=== PATIENT | male | born 1960 | race Caucasian/White ===

== ENCOUNTER 2016-11-27 08:35 | Observation (INO) ==
[2016-11-27] MEDS ORDERED: methylPREDNISolone 125 MG/2 ML VIAL IVP ONE (08:41)
[2016-11-27] MEDS ORDERED: Ipratropium/Albuterol Neb 3 ML IH ONE ×2 (08:41→09:00)
[2016-11-27] MEDS ORDERED: Azithromycin 250 MG TABLET PO ONE (08:41)
[2016-11-27] MEDS ORDERED: 0.9 % Sodium Chloride 1,000 ML IVC SCH ×2 (08:45→10:15)
--- NOTE | 2016-11-27 08:45 | Emergency Department Note ---
Disposition Clinical Impression: Acute exacerbation of chronic obstructive airways disease Hypertension Qualifiers: Hypertension type: essential hypertension Qualified Code(s): I10 - Essential ( primary) hypertension Disposition: Admitted As Inpatient Condition: Fair Referrals: NONE,PCP [Primary Care Provider] - Forms: ED Satisfaction Letter SOB HPI - General Chief Complaint: ED Shortness of Breath/Dyspnea Stated Complaint: SOB/ productive cough for 3 days Time Seen by Provider: 11/27/16 08:35 Source: patient, family Mode of arrival: private vehicle Limitations: no limitations Nursing Notes Reviewed: Yes Vital Signs Reviewed: Yes - History of Present Illness Patient relates he has had increased shortness of breath since yesterday. He has had a hard time sleeping with dyspnea has had a persistent cough productive of some thick yellow phlegm. He states that he often gets a "summer cold" and has this with his underlying COPD. He states he requires 4 L of oxygen by nasal cannula at all times and, even with this, he is having significant dyspnea with any exertion or walking. He has had some chills but denies any fever. He states his chest is very tight with his breathing but he denies any other chest pain or pressure nor any jaw, arm or back pain. He denies abdominal pain, nausea, vomiting or diarrhea. He denies any new lower extremity swelling or pain. He relates he was exposed to her granddaughter who "got a cold". Patient has been doing his routine home treatments without relief. He states he does see a biscuit factory worker at [facility] for his ongoing respiratory problems. Pt Subjective Complaint: shortness of breath Onset (ago): day(s) (1) Context: recent illness Severity: moderate, severe Consistency/Duration: gradually worsening Improves with: oxygen, rest, bronchodilators Worsens with: exertion, movement, coughing Known history of: COPD Associated symptoms: Reports: cough, wheezing, sputum production. Denies: chest pain, pain with inspiration, fever, orthopnea, lower extremity pain, polyuria, polydipsia, parasthesias, palpitations, hemoptysis, diaphoresis, nausea/vomiting, syncope, abdominal pain, rash Cough present: Yes Cough Description: Voluntary, Productive, Bronchospastic, Rattling Cough Frequency: Intermittent Sputum production: Yes Sputum Amount: Moderate Sputum Color: Yellow - Related Data Home oxygen amount: 4 liters Home Medications Medication Instructions Recorded Confirmed Albuterol Sulfate [Albuterol 2 puff IH Q4HR PRN 04/05/15 08/26/16 Inhaler] Amlodipine [Norvasc] 10 mg PO DAILY 04/05/15 08/26/16 Budesonide/Formoterol 160/4.5 2 puff IH BIDR 04/05/15 08/26/16 [Symbicort 160/4.5] Cyclobenzaprine [Flexeril] 10 mg PO TID PRN 04/05/15 08/26/16 Esomeprazole Magnesium [Nexium] 20 mg PO DAILY 04/05/15 08/26/16 Ferrous Sulfate 325 mg PO DAILY 04/05/15 08/26/16 Ipratropium/Albuterol Sulfate 2 puff IH BID 04/05/15 08/26/16 [Combivent Respimat Inhal [place]] Lisinopril [Zestril] 40 mg PO DAILY 04/05/15 08/26/16 Tiotropium [Spiriva] 1 cap IH DAILY 04/05/15 08/26/16 Previous Rx's Medication Instructions Recorded Aspirin 81 mg PO DAILY #30 tab.chew 01/31/16 Atorvastatin [Lipitor] 40 mg PO HS #30 tablet 01/31/16 Folic Acid 1 mg PO DAILY #30 tablet 01/31/16 Furosemide [Lasix] 40 mg PO BID #60 tab 01/31/16 Metoprolol XL (24 HR) Succ [Toprol 100 mg PO DAILY #30 tab.er.24h 01/31/16 Xl] Thiamine (B-1) [Vitamin B-1] 100 mg PO DAILY #30 tablet 01/31/16 HYDROcodone/Acet 5/325 mg [[place] 1 - 2 tab PO Q6H PRN #20 tab 08/26/16 5-325 mg] Rivaroxaban [Xarelto] 10 mg PO DAILY #21 tablet 08/29/16 Allergies Allergy/AdvReac Type Severity Reaction Status Date / Time No Known Allergies Allergy Verified 08/26/16 15:49 All systems ED: reviewed and negative except as stated. Past Medical History - Past Medical History Attestation: Yes The following information was validated with the patient. Source: patient, old records reviewed, nursing notes reviewed Medical history: Reports: CHF, COPD, GERD, hyperlipidemia, hypertension, other ( Obesity, hypoventilation syndrome) Surgical history: Reports: arthroscopy, orthopedic, other (ORIF right ankle, left shoulder replacement), other (Hemorrhoidectomy, cardiac catheterization December 2015) Psychiatric history: Reports: no psych history - Social History Smoking Status: Former smoker Smokeless Tobacco Status: No Alcohol use: Reports: none, heavy Drug use: Reports: none Physical Exam - General Limitations: no limitations General appearance: alert, in distress - Head Head exam: atraumatic, normocephalic, normal inspection - Eye Eye exam: Present: normal appearance, PERRL, EOMI - ENT ENT exam: normal exam, normal oropharynx, mucous membranes moist - Neck Neck exam: Present: normal inspection, full ROM, trachea midline - Chest Chest inspection: Present: normal inspection, symmetric chest wall rise - Respiratory Respiratory exam: Present: respiratory distress, wheezes, prolonged expiratory phase - Cardiovascular Cardiovascular exam: Present: regular rate, normal rhythm, normal heart sounds. Absent: tachycardia, systolic murmur, JVD - Abdominal Exam Abdominal exam: Present: soft, Non-Tender, normal bowel sounds. Absent: tenderness, distention, guarding, rebound, rigidity - Extremities Exam Extremities exam: Present: normal inspection, full ROM, normal capillary refill. Absent: tenderness, pedal edema, calf tenderness - Expanded Lower Extremity Exam Neurovascular/Tendon exam: Present: normal capillary refill. Absent: motor deficit, sensory deficit, tendon deficit Gait: other (Patient is able to stand to transfer from car to wheelchair and from the wheelchair to the bed but his other activities limited by his dyspnea.) - Back Exam Back exam: Present: normal inspection, full ROM. Absent: tenderness, vertebral tenderness - Neurological Exam Neurological exam: Present: alert, oriented X3 - Psychiatric Psychiatric exam: Present: normal affect, normal mood - Skin Skin exam: Present: warm, dry, intact, normal color. Absent: cyanosis, diaphoresis, pallor Course Course Narrative: 0845: The patient was brought in from his car on supplemental oxygen. Upon arriving to the examination bed, he was saturating in the 70s with the oxygen at 4-5 L nasal cannula. With rest in the bed his saturations have come up to the mid 90s. He initially did have to speak truncated sentences, but, with rest , has been able to speak much more normally. Patient was advised that he would likely need initial evaluation in the emergency department for his COPD exacerbation but would also likely need a period of observation the hospital. He indicated he understood that likelihood before he even came in. The patient has been written for aerosols, antibiotic treatment, IV steroid as well as some IV fluids. 0930: All testing has been discussed with the patient. He states he is feeling severely better but continues with an audible wheeze and prolonged expiratory phase with wheezing on auscultation. I believe he will benefit from continued IV steroid, antibiotics and inpatient aerosol treatments. Dr. Correia is being contacted to help coordinate further inpatient treatment. Vital Signs Temperature 99.1 F 11/27/16 08:37 Pulse Rate 92 11/27/16 08:37 Respiratory Rate 15 11/27/16 08:37 Blood Pressure 146/88 11/27/16 08:37 O2 Sat by Pulse Oximetry 87 11/27/16 08:37 Temperature 99.1 F 11/27/16 08:51 Pulse Rate 91 11/27/16 09:05 Respiratory Rate 20 11/27/16 09:05 Blood Pressure 141/80 11/27/16 09:05 O2 Sat by Pulse Oximetry 96 11/27/16 09:05 Oxygen Delivery Oxygen Delivery Nasal Cannula Shortness of Breath/Dyspnea - Differential Diagnosis Likely: acute exacerbation of chronic obstructive airways disease, congestive heart failure, pneumonia, asthma with exacerbation - Medical Records Medical records reviewed: Yes I reviewed the patient's medical records. - Lab Data Lab results reviewed: Yes I reviewed the patient's lab results. Result diagrams: 11/27/16 08:50 11/27/16 08:50 Lab Results 11/27/16 11/27/16 11/27/16 Range/Units 08:50 08:50 08:50 WBC 5.8 (4.3-11.1) K/mcL RBC 4.40 (4.19-5.50) M/mcL Hgb 14.0 (12.9-16.9) g/dL Hct 42.1 (37.5-50.1) % MCV 95.7 (83.0-100.0) fL MCH 31.8 (28.0-33.3) pg MCHC 33.3 (31.6-35.5) g/dL RDW 12.4 (11.5-14.5) % Plt Count 184 (140-400) K/mcL MPV 9.9 (9.4-12.4) fL Immature Gran % 0.3 (0-4) % Seg Neutrophils % 74.5 % Lymphocytes % 13.3 % Monocytes % 10.2 % Eosinophils % 1.2 % Basophils % 0.5 % Neutrophils # 4.3 (1.6-8.9) K/mcL Lymphocytes # 0.8 (0.6-4.6) K/mcL Monocytes # 0.6 (0.0-1.3) K/mcL Eosinophils # 0.1 (0.0-0.6) K/mcL Basophils # 0.0 (0.0-0.2) K/mcL Sodium 140 (136-145) mEq/L Potassium 4.8 H (3.5-4.5) mEq/L Chloride 99 (98-109) mEq/L Carbon Dioxide 30 H (19-29) mEq/L BUN 16 (8-26) mg/dL Creatinine 0.96 (0.72-1.25) mg/dL Est GFR ( Amer) > 60 (> 60) Est GFR (Non-Af Amer) > 60 (> 60) BUN/Creatinine Ratio 17 (6-26) Glucose 101 H (70-99) mg/dL Calculated Osmolality 291 (280-300) Calcium 9.7 (8.6-10.8) mg/dL Troponin I 0.00 (0-0.03) ng/mL B-Natriuretic Peptide (0-100) pg/mL 11/27/16 Range/Units 08:50 WBC (4.3-11.1) K/mcL RBC (4.19-5.50) M/mcL Hgb (12.9-16.9) g/dL Hct (37.5-50.1) % MCV (83.0-100.0) fL MCH (28.0-33.3) pg MCHC (31.6-35.5) g/dL RDW (11.5-14.5) % Plt Count (140-400) K/mcL MPV (9.4-12.4) fL Immature Gran % (0-4) % Seg Neutrophils % % Lymphocytes % % Monocytes % % Eosinophils % % Basophils % % Neutrophils # (1.6-8.9) K/mcL Lymphocytes # (0.6-4.6) K/mcL Monocytes # (0.0-1.3) K/mcL Eosinophils # (0.0-0.6) K/mcL Basophils # (0.0-0.2) K/mcL Sodium (136-145) mEq/L Potassium (3.5-4.5) mEq/L Chloride (98-109) mEq/L Carbon Dioxide (19-29) mEq/L BUN (8-26) mg/dL Creatinine (0.72-1.25) mg/dL Est GFR ( Amer) (> 60) Est GFR (Non-Af Amer) (> 60) BUN/Creatinine Ratio (6-26) Glucose (70-99) mg/dL Calculated Osmolality (280-300) Calcium (8.6-10.8) mg/dL Troponin I (0-0.03) ng/mL B-Natriuretic Peptide 26 (0-100) pg/mL - Radiology Data Radiology results reviewed: Yes I reviewed the patient's radiology results. Single view chest x-ray is performed. This does not demonstrate evidence for infiltrate, effusion, pneumothorax, foreign body or heart failure. The cardiac silhouette is normal. I do not see abnormality to the osseous structures of the chest. This is on my interpretation. Impressions Chest X-Ray 11/27/16 08:41 IMPRESSION: 1. Perhaps minimal prominence of the pulmonary vasculature. 2. Otherwise, no evidence of acute cardiopulmonary abnormality. D/ / Titus Montana MD / Titus Montana MD Interpreting Provider: Titus Montana MD - EKG Data EKG attestation: Yes I reviewed and interpreted this EKG. EKG shows normal: Reports: sinus rhythm, axis, intervals, QRS complexes, ST-T waves Rate: Reports: normal (92) Interpretation: Reports: no acute changes, normal EKG
[2016-11-27 08:59] LABS: Basophils % 0.5 %; Eosinophils # 0.1 K/mcL (0.0-0.6); Eosinophils % 1.2 %; Hematocrit 42.1 % (37.5-50.1); Immature Granulocytes % 0.3 % (0-4); Lymphocytes # 0.8 K/mcL (0.6-4.6); Lymphocytes % 13.3 %; Mean Corpuscular HGB Conc 33.3 g/dL (31.6-35.5); Mean Corpuscular Hemoglobin 31.8 pg (28.0-33.3); Mean Corpuscular Volume 95.7 fL (83.0-100.0); Mean Platelet Volume 9.9 fL (9.4-12.4); Monocytes # 0.6 K/mcL (0.0-1.3); Monocytes % 10.2 %; Neutrophils # 4.3 K/mcL (1.6-8.9); Platelet Count 184 K/mcL (140-400); Red Cell Distribution Width 12.4 % (11.5-14.5); Segmented Neutrophils % 74.5 %
[2016-11-27 09:12] LABS: BUN/Creatinine Ratio 17 (6-26); Blood Urea Nitrogen 16 mg/dL (8-26); Calcium 9.7 mg/dL (8.6-10.8); Carbon Dioxide 30 mEq/L (19-29); Chloride 99 mEq/L (98-109); Glucose 101 mg/dL (70-99); Osmolality,Calculated 291 (280-300); Potassium 4.8 mEq/L (3.5-4.5); Sodium 140 mEq/L (136-145); eGFR For African Americans > 60 (> 60); eGFR For Non-African Americans > 60 (> 60)
[2016-11-27] MEDS: Ipratropium/Albuterol Neb 3 ML ONE ×2 (09:36→09:44)
[2016-11-27] MEDS ORDERED: Naloxone 0.4 MG/ML INJ IVP PRN (10:15)
[2016-11-27] MEDS ORDERED: Ondansetron 4 MG/2 ML VIAL IVP PRN (10:15)
[2016-11-27] MEDS ORDERED: MOM Conc 10 ML UD.LIQ PO PRN (10:15)
[2016-11-27] MEDS: Albuterol 2.5 MG/3 ML NEBULIZER IH PRN ×4 (12:57→23:15)
--- NOTE | 2016-11-27 15:35 | Internal Med History&Physical ---
Date of Encounter: 11/27/16 Time of Encounter: 15:00 Assessment and Plan (1) COPD (chronic obstructive pulmonary disease) Current visit: No Status: Chronic He has been started on Rocephin and Zithromax through emergency room. Will add lactobacillus but discontinue Solu-Medrol since there is no wheezing heard. Hypoxemia has improved on nasal cannula supplemental oxygen. Will order chest CT scan to further evaluate. Qualifiers: COPD type: COPD with acute exacerbation Qualified Code(s): J44.1 - Chronic obstructive pulmonary disease with (acute) exacerbation (2) HTN (hypertension) Current visit: No Status: Chronic Continue Norvasc, lisinopril, and Toprol. Qualifiers: Hypertension type: essential hypertension Qualified Code(s): I10 - Essential (primary) hypertension Internal Medicine - H&P: HPI Chief complaint: Hypoxemia and dyspnea Admitted From: Home Plans for Post Hospital Care: Home History of present illness: Mr. Isaac is a 56 year old male who came to the emergency room stating he had increasing dyspnea over the preceding week. He denies pain in his chest or legs. He has a chronic cough and states it was slightly more prominent in the past week but there was minimal productivity. He denies hemoptysis. He reports his pulse ox this morning showed saturation of 63%. He was evaluated in emergency room and confirmed to have hypoxemia. He was admitted to [facility] floor for ongoing care needs. His respiratory history is significant for having smoked from age [age] up to 1-1 /2 packs per day. He has a diagnosis of COPD and wears oxygen at home 20/11. He has a diagnosis of MIKE and wears BiPAP at home. Past Med Surg Social Fam HX - Past Medical History Medical history: CHF, COPD, GERD, hyperlipidemia, hypertension, other Psychiatric history: no psych history - Past Surgical History Surgical History: arthroscopy, orthopedic, other, other - Social History Smoking Status: Former smoker Smokeless Tobacco Status: No Alcohol use: none, heavy Drug use: none - Family History Sister Adopted: [place]: Jahaira Dickey Age: 61 Family Member Ethnicity: Non- Living Status: Still Living Hx Family Respiratory Disorders: Yes Internal Medicine - H&P: Meds Albuterol Sulfate [Albuterol Inhaler] 2 puff IH Q4HR PRN 04/05/15 [History] Amlodipine [Norvasc] 10 mg PO DAILY 04/05/15 [History] Budesonide/Formoterol 160/4.5 [Symbicort 160/4.5] 2 puff IH BIDR 04/05/15 [ History] Cyclobenzaprine [Flexeril] 10 mg PO TID PRN 04/05/15 [History] Ferrous Sulfate 325 mg PO DAILY 04/05/15 [History] Ipratropium/Albuterol Sulfate [Combivent Respimat Inhal [place]] 2 puff IH BID 11/11 [History] Lisinopril [Zestril] 40 mg PO DAILY 04/05/15 [History] Tiotropium [Spiriva] 1 cap IH DAILY 04/05/15 [History] Aspirin 81 mg PO DAILY #30 tab.chew 01/31/16 [Rx] Atorvastatin [Lipitor] 40 mg PO HS #30 tablet 01/31/16 [Rx] Folic Acid 1 mg PO DAILY #30 tablet 01/31/16 [Rx] Furosemide [Lasix] 40 mg PO BID #60 tab 01/31/16 [Rx] Metoprolol XL (24 HR) Succ [Toprol Xl] 100 mg PO DAILY #30 tab.er.24h 01/31/16 [ Rx] Thiamine (B-1) [Vitamin B-1] 100 mg PO DAILY #30 tablet 01/31/16 [Rx] Omeprazole [PriLOSEC] 40 mg PO DAILY 11/27/16 [History] Allergies No Known Allergies Allergy (Verified 08/26/16 15:49) All Systems PM: A 10-system review of systems was performed and is negative for pertinent findings except as documented above in the HPI. Review of systems: Gen.: He states his weight has been stable the past year except for brief gain following immobilization after an ankle fracture. Cardiovascular: Has history of hypertension. He denies UT but states has a diagnosis CHF. An echocardiogram done 01/22/2016 showed LVEF 45-50%. There was no significant valvular abnormalities seen. There was indeterminant diastolic function reported but E/A ratio was 0.7. A heart catheter January 2016 showed minimal coronary artery disease. He denies DVT or pulmonary embolus. Respiratory: As per history of present illness GI: He has GERD. He denies disorders of his liver gallbladder or exocrine pancreas : He denies hematuria dysuria or kidney stones Neurologic: He denies large distribution strokes or seizures Endocrine: He denies diabetes thyroid disease or hyperlipidemia Hematology/oncology: Denies blood disorders cancers or anemia Psychiatric: He denies anxiety depression or other mental health issues [place] skeletal: He had right foot fracture August 2016 with operative repair. He has had left total shoulder replacement. He has DJD. He denies gout or other bone joint or muscle disorders. - Constitutional Vitals: Temp Pulse Resp BP Pulse Ox 99.0 F 89 21 123/77 91 11/27/16 10:20 11/27/16 10:20 11/27/16 12:59 11/27/16 10:20 11/27/16 12:59 Exam: Gen.: He is a well-developed well-nourished male who appears in no severe distress at present time HEENT: Head is atraumatic and normocephalic. Eyes: EOMI. There is no scleral icterus. Mouth: Mucosa is moist. Neck: Supple and nontender. There is no thyromegaly or adenopathy noted. Heart: Regular without murmurs gallops or ectopics Lungs: No wheezes or crackles are heard. He has egophony in the bases bilaterally Abdomen: Soft and nontender. No masses or guarding are noted. Extremities: There is no cyanosis edema or clubbing noted. Dorsalis pedis and posterior tibial pulses are trace palpable bilaterally. Neurologic: Mental status: He is talkative and a good historian. Cranial nerves : Smile is symmetric. Forehead wrinkles bilaterally. Tongue protrudes midline. EOMI. Motor: There is no pronator drift. Cerebellar: Finger to nose is intact bilaterally. Skin: Warm and dry Internal Med - H&P Results - Labs CBC & Chem 7: 11/27/16 08:50 11/27/16 08:50
[2016-11-27] MEDS: Furosemide 20 MG TABLET PO SCH (17:59)
[2016-11-27] MEDS ORDERED: methylPREDNISolone 125 MG/2 ML VIAL IVP SCH (18:00)
--- NOTE | 2016-11-27 18:28 | Electrocardiograph Report ---
[address] [address] Test Date: 2016-11-27 Pat Name: Cedrick Isaac Department: [id number] Room: [facility] Gender: M [place] Operator: [id number] : 1960 Requested By: Ezio Lester Order Number: [id number] Reading MD: Cali Alvarenga MD Measurements Intervals [place] Rate: 92 P: 79 [place]: 195 QRS: 74 QRSD: 91 T: 77 QT: 296 QTc: 346 Interpretive Statements SINUS RHYTHM BASELINE ARTIFACT Electronically Signed On 11-27-2016 18:26:49 EDT by Cali Alvarenga MD
[2016-11-27] MEDS: Lactobacillus 1 EACH CAP.SPRINK PO SCH (20:21)
[2016-11-28] MEDS: Albuterol 2.5 MG/3 ML NEBULIZER IH PRN ×7 (05:07→22:18)
[2016-11-28] MEDS: Lactobacillus 1 EACH CAP.SPRINK PO SCH ×2 (07:27→20:52)
[2016-11-28] MEDS: Azithromycin 250 MG TABLET PO SCH (07:28)
[2016-11-28] MEDS: Furosemide 20 MG TABLET PO SCH (07:28)
[2016-11-28] MEDS: Aspirin 81 MG TAB.CHEW PO SCH (07:28)
[2016-11-28] MEDS: amLODIPine 5 MG TABLET PO SCH (07:28)
[2016-11-28] MEDS: Lisinopril 20 MG TABLET PO SCH (07:28)
[2016-11-28] MEDS ORDERED: Folic Acid 1 MG TABLET PO SCH (09:00)
[2016-11-28] MEDS ORDERED: Thiamine (B-1) 100 MG TABLET PO SCH (09:00)
[2016-11-28] MEDS ORDERED: Metoprolol XL (24 HR) Succ 25 MG TAB.ER.24H PO SCH (09:00)
--- NOTE | 2016-11-28 09:50 | Discharge Summary ---
Date of Encounter: 11/28/16 Time of Encounter: 09:40 - Discharge Diagnosis (1) COPD (chronic obstructive pulmonary disease) Priority: Primary Status: Chronic Qualifiers: COPD type: COPD with acute exacerbation Qualified Code(s): J44.1 - Chronic obstructive pulmonary disease with (acute) exacerbation (2) HTN (hypertension) Priority: Secondary Status: Chronic Qualifiers: Hypertension type: essential hypertension Qualified Code(s): I10 - Essential (primary) hypertension - Discharge Medications Prescriptions: Cefuroxime PO [Ceftin] 500 mg PO Q12HR #6 tablet Azithromycin [Zithromax] 250 mg PO DAILY #3 tablet Lactobacillus [Culturelle] 1 each PO BID #6 cap.sprink Home Medications: Albuterol Sulfate [Albuterol Inhaler] 2 puff IH Q4HR PRN 04/05/15 [History] Amlodipine [Norvasc] 10 mg PO DAILY 04/05/15 [History] Budesonide/Formoterol 160/4.5 [Symbicort 160/4.5] 2 puff IH BIDR 04/05/15 [ History] Cyclobenzaprine [Flexeril] 10 mg PO TID PRN 04/05/15 [History] Ipratropium/Albuterol Sulfate [Combivent Respimat Inhal [place]] 2 puff IH BID 11/11 [History] Lisinopril [Zestril] 40 mg PO DAILY 04/05/15 [History] Tiotropium [Spiriva] 1 cap IH DAILY 04/05/15 [History] Aspirin 81 mg PO DAILY #30 tab.chew 01/31/16 [Rx] Atorvastatin [Lipitor] 40 mg PO HS #30 tablet 01/31/16 [Rx] Furosemide [Lasix] 40 mg PO BID #60 tab 01/31/16 [Rx] Metoprolol XL (24 HR) Succ [Toprol Xl] 100 mg PO DAILY #30 tab.er.24h 01/31/16 [ Rx] Omeprazole [PriLOSEC] 40 mg PO DAILY 11/27/16 [History] Azithromycin [Zithromax] 250 mg PO DAILY #3 tablet 11/28/16 [Rx] Cefuroxime PO [Ceftin] 500 mg PO Q12HR #6 tablet 11/28/16 [Rx] Lactobacillus [Culturelle] 1 each PO BID #6 cap.sprink 11/28/16 [Rx] Allergies/Adverse Reactions: Allergies No Known Allergies Allergy (Verified 08/26/16 15:49) Procedures/tests Complete & Pending: Procedures Performed prior 72 hours Category Date Time Status CT chest wo con [CT] Routine Cat Scan 11/27/16 17:45 Draft Date of admission: 11/27/16 10:00 Primary care physician: PCP NONE - Patient Status Disposition: Home, Self-Care Condition: Fair Functional capacity at discharge: independent ambulation Overall status at discharge: patient is progressing back to baseline - Discharge Instructions Follow Up With: Olayinka Alcantara DO [Resident] - 1 week - Diet and Activity Activity: wear oxygen at all times Diet: advance to your usual diet Hospital course: Mr. Isaac is a 56 year old male who came to the emergency room stating he had increasing dyspnea over the preceding week. He denies pain in his chest or legs. He has a chronic cough and states it was slightly more prominent in the past week but there was minimal productivity. He denies hemoptysis. He reports his pulse ox the morning of admission showed saturation of 63%. He was evaluated in emergency room and confirmed to have hypoxemia. He was admitted to [facility] for ongoing care needs. Initial orders were written by the emergency room physician. I saw him on November 27 and performed a history and physical. He was started on Rocephin and Zithromax and given a dose of Solu-Medrol. I added lactobacillus. Chest CT was done to further evaluate the dyspnea. There was moderate emphysema changes and a groundglass nodular density 6 mm diameter in the right upper lobe. Repeat chest CT in one year was recommended. He remained afebrile. He felt stable for discharge when I saw him on November 28. He will follow with his PCP within one week. He will continue antibiotics and probiotic for 3 additional days after discharge. - Time Spent with Patient Total time spent providing and/or coordinating discharge services: - Constitutional Vitals: Temp Pulse Resp BP Pulse Ox 97.9 F 86 18 127/80 97 11/28/16 07:03 11/28/16 07:03 11/28/16 08:22 11/28/16 07:03 11/28/16 08:22
[2016-11-28] MEDS ORDERED: predniSONE 20 MG TABLET PO SCH (12:21)
[2016-11-28] MEDS: Isosorbide MONOnitrate (24 HR) 30 MG TAB.ER.24H PO SCH (17:08)
[2016-11-28] MEDS: Bumetanide 1 MG/4 ML VIAL IVP SCH ×2 (17:08)
[2016-11-28] MEDS: methylPREDNISolone 125 MG/2 ML VIAL IVP SCH (17:09)
[2016-11-28] MEDS: Budesonide/Formoterol 160/4.5 MDI IH SCH ×2 (20:28→20:29)
[2016-11-29] MEDS: methylPREDNISolone 125 MG/2 ML VIAL IVP SCH (05:38)
[2016-11-29 05:52] LABS: Hematocrit 38.2 % (37.5-50.1); Hemoglobin 12.4 g/dL (12.9-16.9); Immature Granulocytes % 0.5 % (0-4); Lymphocytes # 0.6 K/mcL (0.6-4.6); Lymphocytes % 14.9 %; Mean Corpuscular HGB Conc 32.5 g/dL (31.6-35.5); Mean Corpuscular Hemoglobin 31.6 pg (28.0-33.3); Mean Corpuscular Volume 97.2 fL (83.0-100.0); Mean Platelet Volume 10.5 fL (9.4-12.4); Monocytes # 0.1 K/mcL (0.0-1.3); Monocytes % 3.5 %; Platelet Count 166 K/mcL (140-400); Red Blood Count 3.93 M/mcL (4.19-5.50); Red Cell Distribution Width 12.4 % (11.5-14.5); Segmented Neutrophils % 81.1 %
[2016-11-29 06:11] LABS: Alanine Aminotransferase 24 Units/L (0-55); Albumin 3.4 g/dL (3.5-5.0); Alkaline Phosphatase 86 Units/L (38-126); Aspartate Amino Transferase 22 Units/L (5-34); BUN/Creatinine Ratio 25 (6-26); Bilirubin,Total 0.2 mg/dL (0.2-1.2); Blood Urea Nitrogen 27 mg/dL (8-26); Calcium 9.3 mg/dL (8.6-10.8); Carbon Dioxide 31 mEq/L (19-29); Chloride 101 mEq/L (98-109); Globulin 3.5 g/dL (2.4-3.5); Glucose 211 mg/dL (70-99); Osmolality,Calculated 307 (280-300); Potassium 4.5 mEq/L (3.5-4.5); Sodium 143 mEq/L (136-145); Total Protein 6.9 g/dL (6.0-8.3); eGFR For African Americans > 60 (> 60); eGFR For Non-African Americans > 60 (> 60)
[2016-11-29 06:48] VITALS: BP 123/76
[2016-11-29] MEDS: Lisinopril 20 MG TABLET PO SCH (08:24)
[2016-11-29] MEDS: Azithromycin 250 MG TABLET PO SCH (08:25)
[2016-11-29] MEDS: Aspirin 81 MG TAB.CHEW PO SCH (08:25)
[2016-11-29] MEDS: Isosorbide MONOnitrate (24 HR) 30 MG TAB.ER.24H PO SCH (08:25)
[2016-11-29] MEDS: Lactobacillus 1 EACH CAP.SPRINK PO SCH (08:25)
[2016-11-29] MEDS: amLODIPine 5 MG TABLET PO SCH (08:25)
[2016-11-29] MEDS: Bumetanide 1 MG/4 ML VIAL IVP SCH (08:26)
[2016-11-29] MEDS: Albuterol 2.5 MG/3 ML NEBULIZER IH PRN ×2 (08:32→15:19)
[2016-11-29] MEDS ORDERED: Metoprolol XL (24 HR) Succ 50 MG TAB.ER.24H PO SCH (09:00)
--- NOTE | 2016-11-29 10:46 | Discharge Summary ---
Date of Encounter: 11/29/16 Time of Encounter: 10:25 - Discharge Diagnosis (1) COPD (chronic obstructive pulmonary disease) Priority: Primary Status: Chronic Qualifiers: COPD type: COPD with acute exacerbation Qualified Code(s): J44.1 - Chronic obstructive pulmonary disease with (acute) exacerbation (2) HTN (hypertension) Priority: Secondary Status: Chronic Qualifiers: Hypertension type: essential hypertension Qualified Code(s): I10 - Essential (primary) hypertension - Discharge Medications Prescriptions: Cefuroxime PO [Ceftin] 500 mg PO Q12HR #6 tablet Azithromycin [Zithromax] 250 mg PO DAILY #3 tablet Isosorbide MONOnitrate (24 HR) [Imdur] 30 mg PO DAILY #30 tab.er.24h Lactobacillus [Culturelle] 1 each PO BID #6 cap.sprink PredniSONE [Deltasone] 10 mg PO BID #3 tablet Home Medications: Albuterol Sulfate [Albuterol Inhaler] 2 puff IH Q4HR PRN 04/05/15 [History] Amlodipine [Norvasc] 10 mg PO DAILY 04/05/15 [History] Budesonide/Formoterol 160/4.5 [Symbicort 160/4.5] 2 puff IH BIDR 04/05/15 [ History] Cyclobenzaprine [Flexeril] 10 mg PO TID PRN 04/05/15 [History] Ipratropium/Albuterol Sulfate [Combivent Respimat Inhal [place]] 2 puff IH BID 11/11 [History] Lisinopril [Zestril] 40 mg PO DAILY 04/05/15 [History] Tiotropium [Spiriva] 1 cap IH DAILY 04/05/15 [History] Aspirin 81 mg PO DAILY #30 tab.chew 01/31/16 [Rx] Atorvastatin [Lipitor] 40 mg PO HS #30 tablet 01/31/16 [Rx] Furosemide [Lasix] 40 mg PO BID #60 tab 01/31/16 [Rx] Metoprolol XL (24 HR) Succ [Toprol Xl] 100 mg PO DAILY #30 tab.er.24h 01/31/16 [ Rx] Omeprazole [PriLOSEC] 40 mg PO DAILY 11/27/16 [History] Azithromycin [Zithromax] 250 mg PO DAILY #3 tablet 11/28/16 [Rx] Cefuroxime PO [Ceftin] 500 mg PO Q12HR #6 tablet 11/28/16 [Rx] Lactobacillus [Culturelle] 1 each PO BID #6 cap.sprink 11/28/16 [Rx] Isosorbide MONOnitrate (24 HR) [Imdur] 30 mg PO DAILY #30 tab.er.24h 11/29/16 [ Rx] PredniSONE [Deltasone] 10 mg PO BID #3 tablet 11/29/16 [Rx] Allergies/Adverse Reactions: Allergies No Known Allergies Allergy (Verified 08/26/16 15:49) Procedures/tests Complete & Pending: Procedures Performed prior 72 hours Category Date Time Status CT chest wo con [CT] Routine Cat Scan 11/27/16 17:45 Draft Date of admission: 11/27/16 10:00 Primary care physician: PCP NONE - Patient Status Disposition: Home, Self-Care Condition: Fair - Discharge Instructions Instructions: Heart Failure (DC), Chronic Hypertension (DC) Follow Up With: Olayinka Alcantara DO [Resident] - 1 week NONE,PCP [Primary Care Provider] - 12/08/16 10:00 am ([facility] ) - Diet and Activity Activity: resume usual activities as tolerated Diet: advance to your usual diet Hospital course: Mr. Isaac is a 56 year old male who came to the emergency room stating he had increasing dyspnea over the preceding week. He denies pain in his chest or legs. He has a chronic cough and states it was slightly more prominent in the past week but there was minimal productivity. He denies hemoptysis. He reports his pulse ox the morning of admission showed saturation of 63%. He was evaluated in emergency room and confirmed to have hypoxemia. He was admitted to [facility] floor for ongoing care needs. Initial orders were written by the emergency room physician. I saw him on November 27 and performed a history and physical. He was started on Rocephin and Zithromax and given a dose of Solu-Medrol. I added lactobacillus. Chest CT was done to further evaluate the dyspnea. There was moderate emphysema changes and a groundglass nodular density 6 mm diameter in the right upper lobe. Repeat chest CT in one year was recommended. He remained afebrile. He felt stable for discharge when I saw him on November 28. He will follow with his PCP within one week. He will continue antibiotics and probiotic for 3 additional days after discharge. Addendum: Following dictation of the discharge summary on November 28 he complained of worsening dyspnea. The discharge was canceled. He was given IV Bumex and a dose of Imdur. Follow up lab work November 29 showed hemoglobin decreased to 12.4. WBC had decreased to 3.7 with differential showing 81.1% segs. He will continue with Ceftin and Zithromax with lactobacillus as prescribed. He will be started on Imdur and will take prednisone for 3 days at discharge also. - Time Spent with Patient Total time spent providing and/or coordinating discharge services: - Constitutional Vitals: Temp Pulse Resp BP Pulse Ox 97.4 F L 74 20 123/76 97 11/29/16 06:47 11/29/16 06:47 11/29/16 08:32 11/29/16 06:47 11/29/16 08:32
[2016-11-29] MEDS: Budesonide/Formoterol 160/4.5 MDI IH SCH (10:52)
== END 2016-11-29 17:00 | disposition home or self-care (01) ==
LOC: EMEROOPIK 08:35 → INPPIK 08:35
PROVIDERS: ADMIT Internal Medicine; ATTEND Internal Medicine

== ENCOUNTER 2018-05-21 09:53 | Observation (INO) ==
[2018-05-21] MEDS ORDERED: Ipratropium/Albuterol Neb 3 ML IH ONE (10:17)
[2018-05-21] MEDS ORDERED: methylPREDNISolone 125 MG/2 ML VIAL IVP ONE (10:17)
--- NOTE | 2018-05-21 10:23 | Emergency Department Note ---
Disposition Clinical Impression: COPD with exacerbation Disposition: Admitted As Inpatient Condition: Fair SOB HPI - General Chief Complaint: ED Upper Respiratory Infection Stated Complaint: Feeling bad for a week+ Time Seen by Provider: 05/21/18 10:02 Source: patient, family Mode of arrival: private vehicle Limitations: no limitations Nursing Notes Reviewed: Yes Vital Signs Reviewed: Yes - History of Present Illness Patient presents to the ED stating he has been "feeling bad" for 1 week. He has been more short of breath than usual and had a cough productive of yellow sputum. States he gets very short of breath after ambulating even short distances. He also reports nasal congestion. States he did have sneezing and sore throat that the symptoms are now gone. He reports headache and body aches as well as subjective fever and chills. Denies any abdominal pain, nausea, vomiting, diarrhea or constipation. No chest pain or leg swelling. No urinary symptoms. No recent travel or sick contacts. He has a history of COPD and has been on home oxygen at 4 L/m for several years. States he has been using all of his inhalers as well as extra breathing treatments at home with his last treatment at 6 AM with no improvement. He denies any recent antibiotic or steroid use. He has not contacted his PCP seen anyone for his current symptoms because he "did not have a ride". He does see pulmonology for his COPD as well. He also has CHF, hypertension, GERD and high cholesterol. He was a smoker for 45 years but quit 6 years ago. - Related Data Home Medications Medication Instructions Recorded Confirmed Albuterol Sulfate [Albuterol 2 puff IH Q4HR PRN 04/05/15 05/21/18 Inhaler] Amlodipine [Norvasc] 10 mg PO DAILY 04/05/15 05/21/18 Ipratropium/Albuterol Sulfate 2 puff IH BID 04/05/15 05/21/18 [Combivent Respimat Inhal [place]] Lisinopril [Zestril] 40 mg PO DAILY 04/05/15 05/21/18 Tiotropium [Spiriva] 1 cap IH DAILY 04/05/15 05/21/18 Omeprazole [PriLOSEC] 40 mg PO DAILY 11/27/16 05/21/18 Budesonide/Formoterol 160/4.5 2 puff IH BIDR 08/11/17 05/21/18 [Symbicort 160/4.5] Ferrous Sulfate [Iron] 325 mg PO DAILY 08/11/17 05/21/18 Folic Acid 1 mg PO DAILY 08/11/17 05/21/18 Thiamine (B-1) [Vitamin B-1] 100 mg PO DAILY 08/11/17 05/21/18 Previous Rx's Medication Instructions Recorded Aspirin 81 mg PO DAILY #30 tab.chew 01/31/16 Atorvastatin [Lipitor] 40 mg PO HS #30 tablet 01/31/16 Furosemide [Lasix] 40 mg PO BID #60 tab 01/31/16 Metoprolol XL (24 HR) Succ [Toprol 100 mg PO DAILY #30 tab.er.24h 01/31/16 Xl] Doxycycline 100 mg PO BID #10 capsule 08/11/17 PredniSONE [Deltasone] 20 mg PO DAILY #5 tablet 08/11/17 Allergies Allergy/AdvReac Type Severity Reaction Status Date / Time No Known Allergies Allergy Verified 08/11/17 10:40 Constitutional: Reports: fever (subjective), chills. Denies: weakness, weight change Eyes: Denies: eye pain, eye discharge, vision change ENT ED: Reports: throat pain, congestion. Denies: ear pain, dental pain, hearing loss, epistaxis, dysphagia Cardiovascular: Reports: dyspnea on exertion. Denies: chest pain, palpitations, edema, syncope Respiratory: Reports: cough, dyspnea, wheezes, sputum production. Denies: hemoptysis, stridor Gastrointestinal: Denies: abdominal pain, nausea, vomiting, diarrhea, constipation, hematemesis, melena, hematochezia Genitourinary: Denies: urgency, dysuria, frequency, hematuria Musculoskeletal: Denies: back pain, neck pain, arthralgia, myalgia Integumentary: Denies: rash, abrasion, lesions Neurological: Denies: headache, weakness, numbness, paresthesias, confusion, abnormal gait, vertigo Psychiatric: Denies: anxiety, depression, suicidal thoughts, homicidal thoughts, auditory hallucinations, visual hallucinations Endocrine: Denies: fatigue Hematological/Lymphatic: Denies: easy bleeding, easy bruising Allergic/Immunologic: Denies: facial swelling, urticaria Past Medical History - Past Medical History Medical history: Reports: arthritis, CHF, COPD, GERD, hyperlipidemia, hypertension, other Surgical history: Reports: arthroscopy, orthopedic, other, other Psychiatric history: Reports: no psych history - Social History Smoking Status: Former smoker Smokeless Tobacco Status: No Alcohol use: Reports: occasionally Drug use: Reports: none Physical Exam - General Limitations: no limitations General appearance: alert, in no apparent distress - Head Head exam: atraumatic, normocephalic, normal inspection - Eye Eye exam: Present: normal appearance, PERRL, EOMI - ENT ENT exam: normal exam, normal oropharynx, mucous membranes moist - Neck Neck exam: Present: normal inspection, full ROM, trachea midline - Chest Chest inspection: Present: normal inspection, symmetric chest wall rise - Respiratory Respiratory exam: Present: wheezes, prolonged expiratory phase. Absent: respiratory distress - Expanded Respiratory Exam Location: wheezes: Left, Right, Upper, Lower, decreased breath sounds: Left, Right, Upper, Lower - Cardiovascular Cardiovascular exam: Present: regular rate, normal rhythm, normal heart sounds - Abdominal Exam Abdominal exam: Present: soft, Non-Tender. Absent: tenderness, distention, guarding, rebound, rigidity - Extremities Exam Extremities exam: Present: normal inspection, full ROM. Absent: tenderness, pedal edema - Back Exam Back exam: Present: normal inspection, full ROM. Absent: tenderness - Neurological Exam Neurological exam: Present: alert, oriented X3 - Psychiatric Psychiatric exam: Present: normal affect, normal mood - Skin Skin exam: Present: warm, dry, intact, normal color Course Course Narrative: Patient presents to the ED with URI symptoms and worsening dyspnea for 1 week along with headache, body aches, subjective fever and chills concerning for COPD exacerbation versus pneumonia versus influenza or less likely CHF exacerbation. On arrival his oxygen saturation was 89% after ambulating and from his car but improved to 94% with rest on his usual 4 L of oxygen. He is afebrile and nontoxic in appearance. He does have diminished lung sounds in his wheezing throughout. Will give nebulizer treatment, steroids and obtain lab work and chest x-ray. - Reevaluation(s) Reevaluation #1: Chest x-ray only shows bronchitis, no pneumonia. Lab work was unremarkable including normal troponin, BMP and lactic acid. Patient reported feeling better after nebulizer treatment and steroids and he did have increased aeration alt [place] with persistent wheezing. CO2 is elevated on his BMP was also elevated on his ABG which showed with mild hypercapnia and hypoxia. Patient is likely a chronic CO2 retainer from his COPD. Discussed with patient admission for further treatment of his COPD exacerbation and he is in agreement. He was started on IV antibiotics. I spoke to the hospitalist on-call, Dr. Correia who agreed to accept the patient. Vital Signs Temperature 97.7 F 05/21/18 09:55 Pulse Rate 76 05/21/18 09:55 Respiratory Rate 18 05/21/18 09:55 Blood Pressure 123/79 05/21/18 09:55 O2 Sat by Pulse Oximetry 89 05/21/18 09:55 Temperature 97.7 F 05/21/18 09:55 Pulse Rate 74 05/21/18 12:43 Respiratory Rate 76 05/21/18 12:43 Blood Pressure 119/78 05/21/18 12:43 O2 Sat by Pulse Oximetry 97 05/21/18 12:43 Oxygen Delivery Oxygen Delivery Nasal Cannula Shortness of Breath/Dyspnea - Differential Diagnosis Likely: acute exacerbation of chronic obstructive airways disease, congestive heart failure, pneumonia - Medical Records Medical records reviewed: Yes I reviewed the patient's medical records. - Lab Data Lab results reviewed: Yes I reviewed the patient's lab results. Result diagrams: 05/21/18 10:36 05/21/18 10:36 Lab Results 05/21/18 05/21/18 05/21/18 Range/Units 10:36 10:36 10:36 WBC 8.0 (4.3-11.1) K/mcL RBC 4.13 L (4.19-5.50) M/mcL Hgb 12.3 L (12.9-16.9) g/dL Hct 38.4 (37.5-50.1) % MCV 93.0 (83.0-100.0) fL MCH 29.8 (28.0-33.3) pg MCHC 32.0 (31.6-35.5) g/dL RDW 12.4 (11.5-14.5) % Plt Count 296 (140-400) K/mcL MPV 9.8 (9.4-12.4) fL Immature Gran % 1.3 (0-4) % Seg Neutrophils % 70.6 % Lymphocytes % 12.2 % Monocytes % 9.5 % Eosinophils % 5.6 % Basophils % 0.8 % Neutrophils # 5.6 (1.6-8.9) K/mcL Lymphocytes # 1.0 (0.6-4.6) K/mcL Monocytes # 0.8 (0.0-1.3) K/mcL Eosinophils # 0.5 (0.0-0.6) K/mcL Basophils # 0.1 (0.0-0.2) K/mcL Sample Site ABG pH (7.32-7.45) pH Units ABG pCO2 (35-45) mmHg ABG pO2 (85-104) mmHg ABG HCO3 (21-27) mEq/L ABG Total CO2 (20-26) mEq/L ABG O2 Saturation (95-98) % ABG Base Excess (-2 to 3) mEq/L Chris Test O2 Delivery Device Inspired O2 (1-15=lpm [id number]=%) Sodium 141 (136-145) mEq/L Potassium 4.4 (3.5-5.1) mEq/L Chloride 96 L (98-107) mEq/L Carbon Dioxide 42 H* (23-29) mEq/L BUN 11 (6-20) mg/dL Creatinine 0.90 (0.70-1.30) mg/dL Est GFR ( Amer) > 60 (> 60) Est GFR (Non-Af Amer) > 60 (> 60) BUN/Creatinine Ratio 12 (6-26) Glucose 113 H (70-105) mg/dL Calculated Osmolality 292 (280-300) Lactic Acid 0.7 (0.5-2.2) mmol/L Calcium 9.8 (8.6-10.3) mg/dL Troponin I < 0.03 (< 0.04) ng/mL B-Natriuretic Peptide (Less than 100) pg/mL 05/21/18 05/21/18 Range/Units 10:36 11:46 WBC (4.3-11.1) K/mcL RBC (4.19-5.50) M/mcL Hgb (12.9-16.9) g/dL Hct (37.5-50.1) % MCV (83.0-100.0) fL MCH (28.0-33.3) pg MCHC (31.6-35.5) g/dL RDW (11.5-14.5) % Plt Count (140-400) K/mcL MPV (9.4-12.4) fL Immature Gran % (0-4) % Seg Neutrophils % % Lymphocytes % % Monocytes % % Eosinophils % % Basophils % % Neutrophils # (1.6-8.9) K/mcL Lymphocytes # (0.6-4.6) K/mcL Monocytes # (0.0-1.3) K/mcL Eosinophils # (0.0-0.6) K/mcL Basophils # (0.0-0.2) K/mcL Sample Site R Radial ABG pH 7.39 (7.32-7.45) pH Units ABG pCO2 68 H (35-45) mmHg ABG pO2 81 L (85-104) mmHg ABG HCO3 41 H (21-27) mEq/L ABG Total CO2 43 H (20-26) mEq/L ABG O2 Saturation 95 (95-98) % ABG Base Excess 13 H (-2 to 3) mEq/L Chris Test Positive O2 Delivery Device Cannula Inspired O2 4.0 (1-15=lpm ph13-129=%) Sodium (136-145) mEq/L Potassium (3.5-5.1) mEq/L Chloride (98-107) mEq/L Carbon Dioxide (23-29) mEq/L BUN (6-20) mg/dL Creatinine (0.70-1.30) mg/dL Est GFR ( Amer) (> 60) Est GFR (Non-Af Amer) (> 60) BUN/Creatinine Ratio (6-26) Glucose (70-105) mg/dL Calculated Osmolality (280-300) Lactic Acid (0.5-2.2) mmol/L Calcium (8.6-10.3) mg/dL Troponin I (< 0.04) ng/mL B-Natriuretic Peptide 36 (Less than 100) pg/mL - Radiology Data Radiology results reviewed: Yes I reviewed the patient's radiology results. ITS Impressions Chest X-Ray 05/21/18 10:18 IMPRESSION: COPD. Acute asymmetric bibasilar reticulonodular densities suggesting bronchitis/bronchiolitis. D/ / Hood Goddard MD / Hood Goddard MD Interpreting Provider: Hood Goddard MD - EKG Data EKG attestation: Yes I reviewed and interpreted this EKG.
[2018-05-21 10:48] LABS: Basophils # 0.1 K/mcL (0.0-0.2); Basophils % 0.8 %; Eosinophils # 0.5 K/mcL (0.0-0.6); Eosinophils % 5.6 %; Hematocrit 38.4 % (37.5-50.1); Hemoglobin 12.3 g/dL (12.9-16.9); Immature Granulocytes % 1.3 % (0-4); Lymphocytes % 12.2 %; Mean Corpuscular Hemoglobin 29.8 pg (28.0-33.3); Mean Platelet Volume 9.8 fL (9.4-12.4); Monocytes # 0.8 K/mcL (0.0-1.3); Monocytes % 9.5 %; Neutrophils # 5.6 K/mcL (1.6-8.9); Platelet Count 296 K/mcL (140-400); Red Blood Count 4.13 M/mcL (4.19-5.50); Red Cell Distribution Width 12.4 % (11.5-14.5); Segmented Neutrophils % 70.6 %
[2018-05-21 11:17] LABS: BUN/Creatinine Ratio 12 (6-26); Blood Urea Nitrogen 11 mg/dL (6-20); Calcium 9.8 mg/dL (8.6-10.3); Carbon Dioxide 42 mEq/L (23-29); Chloride 96 mEq/L (98-107); Glucose 113 mg/dL (70-105); Osmolality,Calculated 292 (280-300); Potassium 4.4 mEq/L (3.5-5.1); Sodium 141 mEq/L (136-145); eGFR For Non-African Americans > 60 (> 60)
[2018-05-21 11:31] LABS: Troponin I < 0.03 ng/mL (< 0.04)
[2018-05-21] MEDS ORDERED: Azithromycin 500 MG in D5% in Water 250 ML IVPB ONE (11:32)
[2018-05-21 11:49] LABS: ABG Base Excess 13 mEq/L (-2 to 3); ABG HCO3 41 mEq/L (21-27); ABG Oxygen Saturation 95 % (95-98); ABG PCO2 68 mmHg (35-45); ABG PH 7.39 pH Units (7.32-7.45); ABG PO2 81 mmHg (85-104); ABG TCO2 43 mEq/L (20-26)
--- NOTE | 2018-05-21 17:06 | Internal Med History&Physical ---
Date of Encounter: 05/21/18 Time of Encounter: 16:35 Assessment and Plan (1) COPD with exacerbation Current visit: Yes Status: Acute Likely acute bronchitis. He was given Solu-Medrol and Zithromax in emergency room. Continue prednisone, antibiotics, and inhalers. (2) Hyperuricemia Current visit: Yes Status: Acute Check uric acid level in a.m. (3) Anemia Current visit: Yes Status: Acute Present intermittently since 2014. Anemia testing will be done in a.m. Qualifiers: Anemia type: unspecified type Qualified Code(s): D64.9 - Anemia, unspecified (4) HTN (hypertension) Current visit: No Status: Chronic Continue Toprol XL, Norvasc, and lisinopril. Qualifiers: Hypertension type: essential hypertension Qualified Code(s): I10 - Essential (primary) hypertension Internal Medicine - H&P: HPI Chief complaint: Cough and dyspnea Admitted From: Emergency Dept Plans for Post Hospital Care: Home History of present illness: Mr. Isaac is a 57 year old male who came to emergency room stating he had one week history of increasing dyspnea with cough productive of yellow sputum. He denies hemoptysis. He was evaluated in emergency room and was felt to have aspiration of COPD with probable acute bronchitis. He was admitted to [facility] floor for ongoing care needs. His respiratory history is significant for having smoked from age [age] up to 1- 1/2 packs per day. He has a diagnosis of COPD and wears oxygen at home 24/. He has a diagnosis of MIKE and wears BiPAP at home. He denies interruption of his respiratory medication at home. Past Med Surg Social Fam HX - Past Medical History Medical history: arthritis, CHF, COPD, GERD, hyperlipidemia, hypertension, other Additional medical history: home oxygen at all times. sleep apnea Psychiatric history: no psych history - Past Surgical History Surgical History: arthroscopy, orthopedic, other, other Additional surgical history: Left total shoulder replacement hernia repair. biceps tenodesis. hemorrhoidectomy. EGD. colonoscopy. Right fot - Social History Smoking Status: Former smoker Smokeless Tobacco Status: No Alcohol use: occasionally Drug use: none - Family History Sister Adopted: No Family Member Ethnicity: Non- Living Status: Still Living Hx Family Respiratory Disorders: Yes Internal Medicine - H&P: Meds Albuterol Sulfate [Albuterol Inhaler] 2 puff IH Q4HR PRN 04/05/15 [History] Amlodipine [Norvasc] 10 mg PO DAILY 04/05/15 [History] Ipratropium/Albuterol Sulfate [Combivent Respimat Inhal [place]] 2 puff IH BID 04/05/15 [History] Lisinopril [Zestril] 40 mg PO DAILY 04/05/15 [History] Tiotropium [Spiriva] 1 cap IH DAILY 04/05/15 [History] Aspirin 81 mg PO DAILY #30 tab.chew 01/31/16 [Rx] Atorvastatin [Lipitor] 40 mg PO HS #30 tablet 01/31/16 [Rx] Furosemide [Lasix] 40 mg PO BID #60 tab 01/31/16 [Rx] Metoprolol XL (24 HR) Succ [Toprol Xl] 100 mg PO DAILY #30 tab.er.24h 01/31/16 [Rx] Omeprazole [PriLOSEC] 40 mg PO DAILY 11/27/16 [History] Budesonide/Formoterol 160/4.5 [Symbicort 160/4.5] 2 puff IH BIDR 08/11/17 [History] Doxycycline 100 mg PO BID #10 capsule 08/11/17 [Rx] Ferrous Sulfate [Iron] 325 mg PO DAILY 08/11/17 [History] Folic Acid 1 mg PO DAILY 08/11/17 [History] PredniSONE [Deltasone] 20 mg PO DAILY #5 tablet 08/11/17 [Rx] Thiamine (B-1) [Vitamin B-1] 100 mg PO DAILY 08/11/17 [History] Allergy/AdvReac Type Severity Reaction Status Date / Time No Known Allergies Allergy Verified 08/11/17 10:40 All Systems PM: A 10-system review of systems was performed and is negative for pertinent findings except as documented above in the HPI. Review of systems: Review of systems from his October 2016 [facility] hospitalization were reviewed and revised as below. Gen.: His weight has been stable at approximately 90 kg since October 2016 hospitalization. Cardiovascular: Has history of hypertension. He denies MO but states has a diagnosis CHF. An echocardiogram done 01/22/2016 showed LVEF 45-50%. There was no significant valvular abnormalities seen. There was indeterminant diastolic function reported but E/A ratio was 0.7. A heart catheter January 2016 showed minimal coronary artery disease. He denies DVT or pulmonary embolus. Respiratory: As per history of present illness GI: He has GERD. He denies disorders of his liver gallbladder or exocrine pancreas : He denies hematuria dysuria or kidney stones Neurologic: He denies large distribution strokes or seizures Endocrine: He denies diabetes thyroid disease or hyperlipidemia Hematology/oncology: Denies blood disorders cancers or anemia Psychiatric: He denies anxiety depression or other mental health issues [place] skeletal: He had right foot fracture August 2016 with operative repair. He has had left total shoulder replacement. He has DJD. He had hyperuricemia on labs December 2015 but denies gout or other bone joint or muscle disorders. - Constitutional Vitals: Temp Pulse Resp BP Pulse Ox 98.5 F 79 18 118/75 93 05/21/18 13:11 05/21/18 13:11 05/21/18 15:00 05/21/18 13:11 05/21/18 15:00 Exam: Gen.: He is a well-developed well-nourished male resting comfortably in bed who appears in no acute distress at present time HEENT: Head is atraumatic and normocephalic. Eyes: EOMI. There is no scleral icterus. Mouth: Mucosa is moist. Neck: Supple and nontender. There is no thyromegaly or adenopathy noted. Heart: Regular without murmurs gallops or ectopics Lungs: He has diminished breath sounds diffusely. No wheezes crackles or egophony are heard Abdomen: Soft and nontender. No masses or guarding are noted. Extremities: There is no cyanosis edema or clubbing noted. Dorsalis pedis and posttibial pulses are 1-2 over 2 bilaterally. Neurologic: Mental status: He is talkative and a good historian. Cranial nerves: Smile is symmetric. Forehead wrinkles bilaterally. Tongue protrudes midline. EOMI. Motor: There is no pronator drift. Cerebellar: Finger to nose is intact bilaterally. Skin: Warm and dry Internal Med - H&P Results - Labs CBC & Chem 7: 05/21/18 10:36 05/21/18 10:36 Labs: Short CBC 05/21/18 Range/Units 10:36 WBC 8.0 (4.3-11.1) K/mcL Hgb 12.3 L (12.9-16.9) g/dL Hct 38.4 (37.5-50.1) % Plt Count 296 (140-400) K/mcL Neutrophils # 5.6 (1.6-8.9) K/mcL BMP 05/21/18 10:36 Sodium 141 Potassium 4.4 Chloride 96 L Carbon Dioxide 42 H* BUN 11 Creatinine 0.90 Glucose 113 H Calcium 9.8 Cardiac Enzymes 05/21/18 Range/Units 10:36 Troponin I < 0.03 (< 0.04) ng/mL - ABG Interpretation ABG results: 05/21/18 11:46 ABG pH 7.39 ABG pCO2 68 H ABG pO2 81 L ABG HCO3 41 H ABG Total CO2 43 H ABG O2 Saturation 95 ABG Base Excess 13 H - Impressions ITS Impressions Chest X-Ray 05/21/18 10:18 IMPRESSION: COPD. Acute asymmetric bibasilar reticulonodular densities suggesting bronchitis/bronchiolitis. D/ / Hood Goddard MD / Hood Goddard MD Interpreting Provider: Hood Goddard MD
[2018-05-21] MEDS: Furosemide 40 MG TABLET PO SCH (17:21)
--- NOTE | 2018-05-21 17:46 | Electrocardiograph Report ---
[address] [id number] Test Date: 2018-05-21 Pat Name: Cedrick Isaac Department: EDP-14 Room: [facility] Gender: M [employer] Supervisor: : 1960 Requested By: Soila Mejia Order Number: [id number] Reading MD: Monie Junior Measurements Intervals [place] Rate: 81 P: 67 CT: 172 QRS: 77 QRSD: 83 T: 71 QT: 355 QTc: 412 Interpretive Statements Sinus rhythm Electronically Signed On 05-21-2018 17:45:03 EST by Monie Junior
[2018-05-21] MEDS: Albuterol 2.5 MG/3 ML NEBULIZER IH PRN ×2 (19:36→23:35)
[2018-05-21] MEDS ORDERED: NON-FORMULARY MEDICATION 1 EACH EACH (Ipratropium/Albuterol Sulfate [Combivent Respimat In IH SCH (21:00)
[2018-05-21] MEDS: Budesonide/Formoterol 160/4.5 1 PUFF INH IH SCH (21:32)
[2018-05-22 05:19] LABS: Basophils % 0.1 %; Hematocrit 35.8 % (37.5-50.1); Hemoglobin 11.5 g/dL (12.9-16.9); Immature Granulocytes % 1.3 % (0-4); Lymphocytes # 0.7 K/mcL (0.6-4.6); Lymphocytes % 7.9 %; Mean Corpuscular HGB Conc 32.1 g/dL (31.6-35.5); Mean Corpuscular Hemoglobin 29.6 pg (28.0-33.3); Mean Platelet Volume 10.1 fL (9.4-12.4); Monocytes # 0.5 K/mcL (0.0-1.3); Monocytes % 5.3 %; Neutrophils # 7.3 K/mcL (1.6-8.9); Platelet Count 303 K/mcL (140-400); Red Blood Count 3.89 M/mcL (4.19-5.50); Red Cell Distribution Width 12.4 % (11.5-14.5); Segmented Neutrophils % 85.4 %
[2018-05-22 05:52] LABS: Thyroid Stimulating Hormone 0.354 mcIU/mL (0.340-5.600)
[2018-05-22] MEDS ORDERED: predniSONE 10 MG TABLET PO SCH (08:00)
[2018-05-22] MEDS ORDERED: Thiamine (B-1) 100 MG TABLET PO SCH (09:00)
[2018-05-22] MEDS ORDERED: Folic Acid 1 MG TABLET PO SCH (09:00)
[2018-05-22] MEDS: Albuterol 2.5 MG/3 ML NEBULIZER IH PRN ×2 (09:07→21:04)
[2018-05-22] MEDS: Tiotropium 18 MCG inhalation IH SCH (09:08)
[2018-05-22] MEDS: Budesonide/Formoterol 160/4.5 1 PUFF INH IH SCH ×2 (09:14→21:05)
[2018-05-22] MEDS: levoFLOXacin 500 MG TABLET PO SCH (10:08)
[2018-05-22] MEDS: Aspirin 81 MG TAB.CHEW PO SCH (10:08)
[2018-05-22] MEDS: Metoprolol XL (24 HR) Succ 50 MG TAB.ER.24H PO SCH (10:09)
[2018-05-22] MEDS: Furosemide 40 MG TABLET PO SCH ×2 (10:09→16:30)
[2018-05-22] MEDS: Lisinopril 20 MG TABLET PO SCH (10:09)
[2018-05-22] MEDS: amLODIPine 5 MG TABLET PO SCH (10:10)
--- NOTE | 2018-05-22 11:32 | Internal Med Progress Note ---
Date of Encounter: 05/22/18 Time of Encounter: 11:20 - Assessment and plan (1) COPD with exacerbation Current Visit: Yes Status: Acute Assessment and plan: May 22. Continue Levaquin and prednisone. (2) Hyperuricemia Current Visit: Yes Status: Acute Assessment and plan: May 22. Uric acid level decreased to 7.0. (3) Anemia Current Visit: Yes Status: Acute Assessment and plan: May 22. Anemia testing shows iron 61, transferrin saturation 18%, transferrin 243, ferritin 49, B12 463, and folate 7.0. Start ferrous sulfate w ith vitamin C in a.m. Qualifiers: Anemia type: unspecified type Qualified Code(s): D64.9 - Anemia, unspecified (4) HTN (hypertension) Current Visit: No Status: Chronic Assessment and plan: May 22. Continue Toprol-XL, Norvasc, and lisinopril Qualifiers: Hypertension type: essential hypertension Qualified Code(s): I10 - Essential (primary) hypertension - Subjective Interval history: May 22. He states he does not feel improved. He has no new complaints. - Constitutional Vitals: Temp Pulse Resp BP Pulse Ox 97.9 F 105 18 130/73 93 05/22/18 07:54 05/22/18 10:07 05/22/18 09:08 05/22/18 10:07 05/22/18 10:14 Exam: He is lying in bed and appears slightly dyspneic. He has prolonged expiratory phase and audible wheezing without use of stethoscope. I reviewed his medications and lab results. Internal Medicine: Result - Labs CBC & Chem 7: 05/22/18 04:20 05/21/18 10:36 Labs: Short CBC 05/22/18 Range/Units 04:20 WBC 8.6 (4.3-11.1) K/mcL Hgb 11.5 L (12.9-16.9) g/dL Hct 35.8 L (37.5-50.1) % Plt Count 303 (140-400) K/mcL Neutrophils # 7.3 (1.6-8.9) K/mcL Cardiac Enzymes 05/21/18 Range/Units 10:36 Troponin I < 0.03 (< 0.04) ng/mL - ABG Interpretation ABG results: ABG ABG pH 7.39 pH Units (7.32-7.45) 05/21/18 11:46 ABG pCO2 68 mmHg (35-45) H 05/21/18 11:46 ABG pO2 81 mmHg (85-104) L 05/21/18 11:46 ABG O2 Saturation 95 % (95-98) 05/21/18 11:46 Consult Discharge Plan - Plan Referrals: Olayinka Alcantara DO [Primary Care Provider] - 1 week
[2018-05-22] MEDS ORDERED: Acetaminophen 325 MG TABLET PO PRN (13:21)
[2018-05-22] MEDS: predniSONE 10 MG TABLET PO SCH (16:31)
[2018-05-23 06:25] VITALS: BP 119/70
[2018-05-23 06:30] LABS: Basophils % 0.2 %; Hemoglobin 11.7 g/dL (12.9-16.9); Immature Granulocytes % 0.9 % (0-4); Lymphocytes % 10.1 %; Mean Corpuscular HGB Conc 31.6 g/dL (31.6-35.5); Mean Corpuscular Hemoglobin 29.9 pg (28.0-33.3); Mean Corpuscular Volume 94.6 fL (83.0-100.0); Mean Platelet Volume 9.8 fL (9.4-12.4); Monocytes # 0.7 K/mcL (0.0-1.3); Monocytes % 6.8 %; Neutrophils # 8.3 K/mcL (1.6-8.9); Platelet Count 287 K/mcL (140-400); Red Blood Count 3.91 M/mcL (4.19-5.50); Red Cell Distribution Width 12.6 % (11.5-14.5)
[2018-05-23] MEDS ORDERED: Ascorbic Acid 500 MG TABLET PO SCH (06:30)
[2018-05-23] MEDS: levoFLOXacin 500 MG TABLET PO SCH (07:27)
[2018-05-23] MEDS: Lisinopril 20 MG TABLET PO SCH (07:27)
[2018-05-23] MEDS: Aspirin 81 MG TAB.CHEW PO SCH (07:28)
[2018-05-23] MEDS: Metoprolol XL (24 HR) Succ 50 MG TAB.ER.24H PO SCH (07:28)
[2018-05-23] MEDS: amLODIPine 5 MG TABLET PO SCH (07:28)
[2018-05-23] MEDS: predniSONE 10 MG TABLET PO SCH (07:28)
[2018-05-23] MEDS: Furosemide 40 MG TABLET PO SCH (07:28)
[2018-05-23] MEDS: Albuterol 2.5 MG/3 ML NEBULIZER IH PRN (07:50)
[2018-05-23] MEDS: Budesonide/Formoterol 160/4.5 1 PUFF INH IH SCH (07:51)
[2018-05-23] MEDS: Tiotropium 18 MCG inhalation IH SCH (07:58)
--- NOTE | 2018-05-23 10:09 | Discharge Summary ---
Date of Encounter: 05/23/18 Time of Encounter: 10:00 - Discharge Diagnosis (1) COPD with exacerbation Priority: Primary Status: Acute (2) Hyperuricemia Priority: Secondary Status: Acute (3) Anemia Priority: Secondary Status: Acute Qualifiers: Anemia type: unspecified type Qualified Code(s): D64.9 - Anemia, unspecified (4) HTN (hypertension) Priority: Secondary Status: Chronic Qualifiers: Hypertension type: essential hypertension Qualified Code(s): I10 - Essential (primary) hypertension Hospital course: Mr. Isaac is a 57 year old male who came to emergency room stating he had one week history of increasing dyspnea with cough productive of yellow sputum. He denies hemoptysis. He was evaluated in emergency room and was felt to have aspiration of COPD with probable acute bronchitis. He was admitted to [facility] floor for ongoing care needs. Initial orders were written by the emergency room physician. I saw him on May 21 and performed a history and physical. He was started on Solu-Medrol and Zithromax in emergency room. I changed him to prednisone and started him on Levaquin. He felt improved on May 23 and stable for discharge home. He will continue with antibiotic and probiotic with steroids for 3 additional days at discharge. Anemia testing showed iron 61, transferrin saturation 18%, transferrin 243, ferritin 49, B12 463, and folate 7.0. He will continue ferrous sulfate with the addition of vitamin C to improve absorption. TSH returned normal at 0.354. He will follow with his PCP Olayinka Alcantara D.O. within 1 week. - Time Spent with Patient Total time spent providing and/or coordinating discharge services: - Discharge Medications Prescriptions: Ascorbic Acid [Vitamin C] 500 mg PO 0630 #30 tablet Lactobacillus [Culturelle] 1 each PO BID #6 cap.sprink levoFLOXacin [Levaquin] 500 mg PO DAILY #3 tablet predniSONE [PredniSONE] 20 mg PO BIDWM #12 tablet Home Medications: Albuterol Sulfate [Albuterol Inhaler] 2 puff IH Q4HR PRN 04/05/15 [History] Amlodipine [Norvasc] 10 mg PO DAILY 04/05/15 [History] Ipratropium/Albuterol Sulfate [Combivent Respimat Inhal [place]] 2 puff IH BID 04/05/15 [History] Lisinopril [Zestril] 40 mg PO DAILY 04/05/15 [History] Tiotropium [Spiriva] 1 cap IH DAILY 04/05/15 [History] Aspirin 81 mg PO DAILY #30 tab.chew 01/31/16 [Rx] Atorvastatin [Lipitor] 40 mg PO HS #30 tablet 01/31/16 [Rx] Furosemide [Lasix] 40 mg PO BID #60 tab 01/31/16 [Rx] Metoprolol XL (24 HR) Succ [Toprol Xl] 100 mg PO DAILY #30 tab.er.24h 01/31/16 [Rx] Omeprazole [PriLOSEC] 40 mg PO DAILY 11/27/16 [History] Budesonide/Formoterol 160/4.5 [Symbicort 160/4.5] 2 puff IH BIDR 08/11/17 [History] Folic Acid 1 mg PO DAILY 08/11/17 [History] Thiamine (B-1) [Vitamin B-1] 100 mg PO DAILY 08/11/17 [History] Daliresp 500 mcg PO DAILY 05/22/18 [History] amLODIPine 10 mg PO DAILY 05/22/18 [History] Ascorbic Acid [Vitamin C] 500 mg PO 0630 #30 tablet 05/23/18 [Rx] Ferrous Sulfate [Iron] 325 mg PO DAILY #0 05/23/18 [Rx] Lactobacillus [Culturelle] 1 each PO BID #6 cap.sprink 05/23/18 [Rx] levoFLOXacin [Levaquin] 500 mg PO DAILY #3 tablet 05/23/18 [Rx] predniSONE [PredniSONE] 20 mg PO BIDWM #12 tablet 05/23/18 [Rx] Allergies/Adverse Reactions: Allergy/AdvReac Type Severity Reaction Status Date / Time No Known Allergies Allergy Verified 08/11/17 10:40 Date of admission: 05/21/18 12:39 Primary care physician: Olayinka Alcantara DO - Constitutional Vitals: Temp Pulse Resp BP Pulse Ox 97.6 F 70 16 119/70 97 05/23/18 06:24 05/23/18 06:24 05/23/18 07:52 05/23/18 06:24 05/23/18 07:52 - Patient Status Disposition: Home, Self-Care Condition: Fair - Discharge Instructions Follow Up With: Olayinka Alcantara DO [Primary Care Provider] - 1 week - Diet and Activity Activity: resume usual activities as tolerated, wear oxygen at all times Diet: advance to your usual diet
== END 2018-05-23 12:34 | disposition home or self-care (01) ==
LOC: INPPIK 09:53 → EMEROOPIK 09:53 → INPPIK 13:00
PROVIDERS: ADMIT Internal Medicine; ATTEND Internal Medicine

== ENCOUNTER 2018-12-23 14:41 | Observation (INO) ==
--- NOTE | 2018-12-23 14:56 | Emergency Department Note ---
Disposition Clinical Impression: Acute exacerbation of chronic obstructive airways disease Disposition: Admitted As Inpatient Condition: Fair Time of Disposition: 15:58 SOB HPI - General Chief Complaint: ED Shortness of Breath/Dyspnea Stated Complaint: productive cough Time Seen by Provider: 12/23/18 14:51 Source: patient, family Mode of arrival: private vehicle Limitations: no limitations Nursing Notes Reviewed: Yes Vital Signs Reviewed: Yes - History of Present Illness Patient relates for about a week he said increased cough and wheezing. He did see his family doctor on Sunday and was started on prednisone and azithromycin. He states he had a temperature 100.1 at that time. He has had increased shortness of breath as well as increasing cough. Sates the cough has been productive initially wait and now green phlegm. With coughing he gets a headache but no other headache or body pain. He denies any chest pain other than soreness with coughing. He denies any nausea, diaphoresis or abdominal pain. He denies any lower extremity swelling or edema. He denies ill exposures or exposure to respiratory irritants or fumes. He is on 4 L of oxygen at home and has been doing his normal inhalers and aerosols. He states his last aerosol treatment at home was about an hour prior to arrival. He states that the prednisone and azithromycin usually works for him at home. He thought that he was bad enough on Sunday that "they might keep me". Pt Subjective Complaint: shortness of breath Onset (ago): week(s) (1) Context: recent illness Severity: moderate Consistency/Duration: gradually worsening Improves with: oxygen, rest, bronchodilators Worsens with: exertion, coughing Known history of: COPD Associated symptoms: Reports: fever, cough, wheezing, sputum production. Denies: chest pain, pain with inspiration, orthopnea, lower extremity pain, polyuria, polydipsia, parasthesias, palpitations, hemoptysis, diaphoresis, nausea/vomiting, syncope, abdominal pain, rash, sense of impending doom Treatment prior to arrival: oxygen, bronchodilator Cough present: Yes Cough Description: Voluntary, Productive, Rattling, Wheezy Cough Frequency: Intermittent Sputum production: Yes Sputum Amount: Moderate Sputum Color: Yellow, Green - Related Data Home oxygen amount: 4 liters Home Medications Medication Instructions Recorded Confirmed Albuterol Sulfate [Albuterol 2 puff IH Q4HR PRN 04/05/15 12/23/18 Inhaler] Amlodipine [Norvasc] 10 mg PO DAILY 04/05/15 12/23/18 Ipratropium/Albuterol Sulfate 2 puff IH BID 04/05/15 12/23/18 [Combivent Respimat Inhal [place]] Lisinopril [Zestril] 40 mg PO DAILY 04/05/15 12/23/18 Tiotropium [Spiriva] 1 cap IH DAILY 04/05/15 12/23/18 Omeprazole [PriLOSEC] 40 mg PO DAILY 11/27/16 12/23/18 Budesonide/Formoterol 160/4.5 2 puff IH BIDR 08/11/17 12/23/18 [Symbicort 160/4.5] Folic Acid 1 mg PO DAILY 08/11/17 12/23/18 Thiamine (B-1) [Vitamin B-1] 100 mg PO DAILY 08/11/17 12/23/18 Daliresp 500 mcg PO DAILY 05/22/18 12/23/18 amLODIPine 10 mg PO DAILY 05/22/18 12/23/18 Previous Rx's Medication Instructions Recorded Aspirin 81 mg PO DAILY #30 tab.chew 01/31/16 Atorvastatin [Lipitor] 40 mg PO HS #30 tablet 01/31/16 Furosemide [Lasix] 40 mg PO BID #60 tab 01/31/16 Metoprolol XL (24 HR) Succ [Toprol 100 mg PO DAILY #30 tab.er.24h 01/31/16 Xl] Ascorbic Acid [Vitamin C] 500 mg PO 0630 #30 tablet 05/23/18 Ferrous Sulfate [Iron] 325 mg PO DAILY #0 05/23/18 Lactobacillus [Culturelle] 1 each PO BID #6 cap.sprink 05/23/18 predniSONE [PredniSONE] 20 mg PO BIDWM #12 tablet 05/23/18 Allergies Allergy/AdvReac Type Severity Reaction Status Date / Time No Known Allergies Allergy Verified 05/28/18 14:10 All systems ED: reviewed and negative except as stated. Past Medical History - Past Medical History Attestation: Yes The following information was validated with the patient. Source: patient, old records reviewed, nursing notes reviewed Medical history: Reports: arthritis, CHF, COPD, GERD, hyperlipidemia, hypertension, other Surgical history: Reports: arthroscopy, orthopedic, other, other Psychiatric history: Reports: no psych history - Social History Smoking Status: Former smoker Smokeless Tobacco Status: No Alcohol use: Reports: occasionally Drug use: Reports: none Physical Exam - General Limitations: no limitations General appearance: alert, in no apparent distress - Head Head exam: atraumatic, normocephalic, normal inspection - Eye Eye exam: Present: normal appearance, PERRL, EOMI. Absent: scleral icterus - ENT ENT exam: normal exam, normal oropharynx, mucous membranes moist - Neck Neck exam: Present: normal inspection, full ROM, trachea midline - Chest Chest inspection: Present: normal inspection, symmetric chest wall rise. Absent: tenderness - Respiratory Respiratory exam: Present: respiratory distress, wheezes, prolonged expiratory phase. Absent: stridor, accessory muscle use - Cardiovascular Cardiovascular exam: Present: regular rate, normal rhythm, normal heart sounds. Absent: tachycardia - Abdominal Exam Abdominal exam: Present: soft, Non-Tender, normal bowel sounds. Absent: tenderness, distention, guarding, rebound, rigidity - Extremities Exam Extremities exam: Present: normal inspection, full ROM, normal capillary refill. Absent: tenderness, pedal edema, calf tenderness - Expanded Lower Extremity Exam Neurovascular/Tendon exam: Present: normal capillary refill. Absent: motor deficit, sensory deficit, tendon deficit Gait: observed and normal - Neurological Exam Neurological exam: Present: alert, oriented X3 - Psychiatric Psychiatric exam: Present: normal affect, normal mood - Skin Skin exam: Present: warm, dry, intact, normal color. Absent: cyanosis, diaphoresis, pallor Course Course Narrative: On arrival the patient was saturating at 86% on his 4 L nasal cannula. At rest he has come up into the mid 90s. We have instituted DuoNeb aerosol as well as IV antibiotics and steroid. Patient understands that he will likely need inpatient observation and stabilization. I will contact to Dr. Correia upon completion of testing. 1558: With return of all testing, the patient remains with some baseline dyspnea and wheezing. His heart rate is 88 he is saturating 96% on his 4 L. I feel be prudent to continue IV antibiotics and respiratory treatments inpatient with hope is discharged at home within the day or 2. I discussed this with Dr. Correia and verbal orders have been obtained for his observation. Vital Signs Temperature 97.9 F 12/23/18 14:50 Pulse Rate 90 12/23/18 14:50 Respiratory Rate 24 12/23/18 14:50 Blood Pressure 115/69 12/23/18 14:50 O2 Sat by Pulse Oximetry 86 12/23/18 14:50 Temperature 97.9 F 12/23/18 14:50 Pulse Rate 85 12/23/18 17:26 Respiratory Rate 16 12/23/18 17:30 Blood Pressure 136/79 12/23/18 17:26 O2 Sat by Pulse Oximetry 91 12/23/18 17:30 Oxygen Delivery Oxygen Delivery Nasal Cannula Shortness of Breath/Dyspnea - Differential Diagnosis Likely: acute exacerbation of chronic obstructive airways disease, congestive heart failure, pneumonia, asthma with exacerbation - Medical Records Medical records reviewed: Yes I reviewed the patient's medical records. - Lab Data Lab results reviewed: Yes I reviewed the patient's lab results. Result diagrams: 12/23/18 15:11 12/23/18 15:11 Lab Results 12/23/18 12/23/18 12/23/18 Range/Units 15:11 15:11 15:11 WBC 11.0 (4.3-11.1) K/mcL RBC 4.64 (4.19-5.50) M/mcL Hgb 10.3 L (12.9-16.9) g/dL Hct 35.7 L (37.5-50.1) % MCV 76.9 L (83.0-100.0) fL MCH 22.2 L (28.0-33.3) pg MCHC 28.9 L (31.6-35.5) g/dL RDW 19.8 H (11.5-14.5) % Plt Count 375 (140-400) K/mcL MPV 10.1 (9.4-12.4) fL Immature Gran % 0.8 (0-4) % Seg Neutrophils % 85.1 % Lymphocytes % 5.7 % Monocytes % 8.2 % Eosinophils % 0.0 % Basophils % 0.2 % Neutrophils # 9.4 H (1.6-8.9) K/mcL Lymphocytes # 0.6 (0.6-4.6) K/mcL Monocytes # 0.9 (0.0-1.3) K/mcL Eosinophils # 0.0 (0.0-0.6) K/mcL Basophils # 0.0 (0.0-0.2) K/mcL Toxic Granulation Present A (Not Present) Toxic Vacuolation Present A (Not Present) Platelet Estimate Normal (Normal) Hypochromasia Present A (Not Present) Anisocytosis 1+ A (Not Present) PT (9.4-12.1) Seconds INR APTT (26.0-36.0) Seconds Sodium 138 (136-145) mEq/L Potassium 4.4 (3.5-5.1) mEq/L Chloride 100 (98-107) mEq/L Carbon Dioxide 32 H (23-29) mEq/L BUN 26 H (6-20) mg/dL Creatinine 1.01 (0.70-1.30) mg/dL Est GFR ( Amer) > 60 (> 60) Est GFR (Non-Af Amer) > 60 (> 60) BUN/Creatinine Ratio 26 (6-26) Glucose 154 H (70-105) mg/dL Calculated Osmolality 294 (280-300) Lactic Acid 1.3 (0.5-2.2) mmol/L Calcium 9.1 (8.6-10.3) mg/dL Total Bilirubin 0.3 (0.3-1.0) mg/dL Direct Bilirubin 0.0 (0.0-0.2) mg/dL Indirect Bilirubin 0.3 (0.0-1.2) mg/dL AST 22 (13-39) Units/L ALT 17 (7-52) Units/L Alkaline Phosphatase 80 (34-104) Units/L Troponin I < 0.03 (< 0.04) ng/mL B-Natriuretic Peptide (Less than 100) pg/mL Serum Total Protein 7.3 (6.4-8.9) g/dL Albumin 3.8 (3.5-5.7) g/dL Globulin 3.5 (2.4-3.5) g/dL Albumin/Globulin Ratio 1.1 (1.1-2.2) 12/23/18 12/23/18 Range/Units 15:11 15:11 WBC (4.3-11.1) K/mcL RBC (4.19-5.50) M/mcL Hgb (12.9-16.9) g/dL Hct (37.5-50.1) % MCV (83.0-100.0) fL MCH (28.0-33.3) pg MCHC (31.6-35.5) g/dL RDW (11.5-14.5) % Plt Count (140-400) K/mcL MPV (9.4-12.4) fL Immature Gran % (0-4) % Seg Neutrophils % % Lymphocytes % % Monocytes % % Eosinophils % % Basophils % % Neutrophils # (1.6-8.9) K/mcL Lymphocytes # (0.6-4.6) K/mcL Monocytes # (0.0-1.3) K/mcL Eosinophils # (0.0-0.6) K/mcL Basophils # (0.0-0.2) K/mcL Toxic Granulation (Not Present) Toxic Vacuolation (Not Present) Platelet Estimate (Normal) Hypochromasia (Not Present) Anisocytosis (Not Present) PT 11.9 (9.4-12.1) Seconds INR 1.0 APTT 31.2 (26.0-36.0) Seconds Sodium (136-145) mEq/L Potassium (3.5-5.1) mEq/L Chloride (98-107) mEq/L Carbon Dioxide (23-29) mEq/L BUN (6-20) mg/dL Creatinine (0.70-1.30) mg/dL Est GFR ( Amer) (> 60) Est GFR (Non-Af Amer) (> 60) BUN/Creatinine Ratio (6-26) Glucose (70-105) mg/dL Calculated Osmolality (280-300) Lactic Acid (0.5-2.2) mmol/L Calcium (8.6-10.3) mg/dL Total Bilirubin (0.3-1.0) mg/dL Direct Bilirubin (0.0-0.2) mg/dL Indirect Bilirubin (0.0-1.2) mg/dL AST (13-39) Units/L ALT (7-52) Units/L Alkaline Phosphatase (34-104) Units/L Troponin I (< 0.04) ng/mL B-Natriuretic Peptide 173 H (Less than 100) pg/mL Serum Total Protein (6.4-8.9) g/dL Albumin (3.5-5.7) g/dL Globulin (2.4-3.5) g/dL Albumin/Globulin Ratio (1.1-2.2) - Radiology Data Radiology results reviewed: Yes I reviewed the patient's radiology results. Single view chest x-ray is performed. This shows no neck basilar atelectatic changes which are improved from comparison film from 05/28/2018. I do not see focal infiltrate, effusion, pneumothorax or heart failure. This is on my interpretation. Impressions Chest X-Ray 12/23/18 14:57 IMPRESSION: 1. No significant change in the appearance of the chest. 2. Somewhat reticular opacities are again seen in the lung bases bilaterally. D/ / Titus Montana MD / Titus Montana MD Interpreting Provider: Titus Montana MD - EKG Data EKG attestation: Yes I reviewed and interpreted this EKG. EKG shows normal: Reports: sinus rhythm, axis, intervals, QRS complexes, ST-T waves Rate: Reports: normal (86) Interpretation: Reports: no acute changes, normal EKG
[2018-12-23] MEDS ORDERED: cefTRIAXone 2,000 MG in Water for inj. (sterile) 10 ML IVP ONE (14:57)
[2018-12-23] MEDS ORDERED: Azithromycin 500 MG in 0.9 % Sodium Chloride 250 ML IVPB ONE (14:57)
[2018-12-23] MEDS ORDERED: methylPREDNISolone 125 MG/2 ML VIAL IVP ONE (14:57)
[2018-12-23] MEDS ORDERED: 0.9 % Sodium Chloride 1,000 ML IVC ONE (14:57)
[2018-12-23] MEDS ORDERED: Albuterol 2.5 MG/3 ML NEBULIZER IH ONE (14:57)
[2018-12-23 15:19] LABS: Basophils % 0.2 %; Hematocrit 35.7 % (37.5-50.1); Hemoglobin 10.3 g/dL (12.9-16.9); Immature Granulocytes % 0.8 % (0-4); Lymphocytes # 0.6 K/mcL (0.6-4.6); Lymphocytes % 5.7 %; Mean Corpuscular HGB Conc 28.9 g/dL (31.6-35.5); Mean Corpuscular Hemoglobin 22.2 pg (28.0-33.3); Mean Corpuscular Volume 76.9 fL (83.0-100.0); Mean Platelet Volume 10.1 fL (9.4-12.4); Monocytes # 0.9 K/mcL (0.0-1.3); Monocytes % 8.2 %; Neutrophils # 9.4 K/mcL (1.6-8.9); Platelet Count 375 K/mcL (140-400); Red Blood Count 4.64 M/mcL (4.19-5.50); Red Cell Distribution Width 19.8 % (11.5-14.5); Segmented Neutrophils % 85.1 %
[2018-12-23 15:26] LABS: Prothrombin Time 11.9 Seconds (9.4-12.1)
[2018-12-23 15:28] LABS: Activated Partial Thrombo Time 31.2 Seconds (26.0-36.0)
[2018-12-23 15:37] LABS: Alanine Aminotransferase 17 Units/L (7-52); Albumin 3.8 g/dL (3.5-5.7); Albumin/Globulin Ratio 1.1 (1.1-2.2); Alkaline Phosphatase 80 Units/L (34-104); Aspartate Amino Transferase 22 Units/L (13-39); BUN/Creatinine Ratio 26 (6-26); Bilirubin,Indirect 0.3 mg/dL (0.0-1.2); Bilirubin,Total 0.3 mg/dL (0.3-1.0); Blood Urea Nitrogen 26 mg/dL (6-20); Calcium 9.1 mg/dL (8.6-10.3); Carbon Dioxide 32 mEq/L (23-29); Chloride 100 mEq/L (98-107); Globulin 3.5 g/dL (2.4-3.5); Glucose 154 mg/dL (70-105); Osmolality,Calculated 294 (280-300); Potassium 4.4 mEq/L (3.5-5.1); Sodium 138 mEq/L (136-145); Total Protein 7.3 g/dL (6.4-8.9); Troponin I < 0.03 ng/mL (< 0.04); eGFR For African Americans > 60 (> 60); eGFR For Non-African Americans > 60 (> 60)
[2018-12-23 15:59] LABS: Anisocytosis 1+ (Not Present); Hypochromasia Present (Not Present); Platelet Estimate Normal (Normal); Toxic Granulation Present (Not Present); Toxic Vacuolation Present (Not Present)
[2018-12-23] MEDS ORDERED: 0.9 % Sodium Chloride 1,000 ML IVC SCH ×3 (16:30→18:05)
[2018-12-23] MEDS ORDERED: Ipratropium/Albuterol Neb 3 ML IH ONE (17:16)
[2018-12-23] MEDS ORDERED: Naloxone 0.4 MG/ML INJ IVP PRN (18:05)
[2018-12-23] MEDS ORDERED: MOM Conc 10 ML UD.LIQ PO PRN (18:05)
[2018-12-23] MEDS ORDERED: Ondansetron ODT 4 MG TAB.RAPDIS SL PRN (18:05)
[2018-12-23] MEDS ORDERED: Mag Hydrox/Al Hydrox/Simeth 30 ML UDC PO PRN (18:05)
[2018-12-23] MEDS: Ipratropium/Albuterol Neb 3 ML IH SCH ×2 (18:54→20:58)
[2018-12-23] MEDS: 0.9 % Sodium Chloride 1,000 ML IVC SCH (19:35)
[2018-12-23] MEDS: predniSONE 20 MG TABLET PO SCH (20:42)
[2018-12-24] MEDS: Ipratropium/Albuterol Neb 3 ML IH SCH ×6 (00:23→19:36)
[2018-12-24] MEDS: 0.9 % Sodium Chloride 1,000 ML IVC SCH (04:14)
[2018-12-24 07:33] LABS: Basophils % 0.3 %; Hematocrit 33.7 % (37.5-50.1); Hemoglobin 9.5 g/dL (12.9-16.9); Immature Granulocytes % 1.9 % (0-4); Lymphocytes # 0.8 K/mcL (0.6-4.6); Mean Corpuscular HGB Conc 28.2 g/dL (31.6-35.5); Mean Corpuscular Hemoglobin 21.9 pg (28.0-33.3); Mean Corpuscular Volume 77.6 fL (83.0-100.0); Mean Platelet Volume 9.7 fL (9.4-12.4); Monocytes # 0.7 K/mcL (0.0-1.3); Monocytes % 6.8 %; Neutrophils # 8.6 K/mcL (1.6-8.9); Nucleated Red Blood Cells 0.3 /100 WBC (0); Platelet Count 403 K/mcL (140-400); Red Blood Count 4.34 M/mcL (4.19-5.50); Red Cell Distribution Width 19.5 % (11.5-14.5); White Blood Count 10.4 K/mcL (4.3-11.1)
[2018-12-24 07:51] LABS: BUN/Creatinine Ratio 24 (6-26); Blood Urea Nitrogen 20 mg/dL (6-20); Carbon Dioxide 35 mEq/L (23-29); Chloride 105 mEq/L (98-107); Glucose 148 mg/dL (70-105); Osmolality,Calculated 301 (280-300); Potassium 4.2 mEq/L (3.5-5.1); Sodium 143 mEq/L (136-145); eGFR For African Americans > 60 (> 60); eGFR For Non-African Americans > 60 (> 60)
[2018-12-24 07:53] LABS: Anisocytosis 1+ (Not Present); Hypochromasia Present (Not Present); Microcytosis Present (Not Present)
[2018-12-24] MEDS: predniSONE 20 MG TABLET PO SCH ×2 (09:10→16:58)
[2018-12-24 09:11] LABS: % Iron Saturation 4 % (20-55); Iron 16 mcg/dL (65-175); Transferrin 267 mg/dL (203-362)
[2018-12-24 09:29] LABS: Ferritin 53 ng/mL (20-250)
--- NOTE | 2018-12-24 10:09 | Internal Med History&Physical ---
Date of Encounter: 12/24/18 Time of Encounter: 09:30 Assessment and Plan (1) COPD with exacerbation Current visit: No Status: Acute He was started on Rocephin and Zithromax with Solu-Medrol in emergency room. These will be continued. Pro-calcitonin level will be checked. Most recent chest CT was March 2017 and showed no worrisome pathology. (2) HTN (hypertension) Current visit: No Status: Chronic Continue Toprol. Hold amlodipine and lisinopril at this time. Qualifiers: Hypertension type: essential hypertension Qualified Code(s): I10 - Essential (primary) hypertension (3) Anemia Current visit: No Status: Acute Hemoglobin 9.5 today with MCV 77.6. Anemia testing showed iron 16, transferrin saturation 4%, transferrin 267, ferritin 53, B12 376, and folate 7.0, He reports he has not taken ferrous sulfate with ascorbic acid for several months. These will be restarted. Qualifiers: Anemia type: unspecified type Qualified Code(s): D64.9 - Anemia, unspecified Internal Medicine - H&P: HPI Chief complaint: Dyspnea and cough Admitted From: Emergency Dept Plans for Post Hospital Care: Home History of present illness: Mr. Isaac is a 58 year old male who came to emergency room complaining of one-week history of dyspnea, productive cough , and fevers and chills. He saw his PCP December 20 and received a Z-Evan and prednisone. He does not feel significantly improved so came to emergency room. He was evaluated and was felt to have exacerbation of COPD. He was admitted to [facility] floor for ongoing care needs. He states he feels minimally improved present time. His respiratory history is significant for having smoked from age [age] up to 1-1/2 packs per day. He has a diagnosis of COPD and wears oxygen at home 20/11. He has a diagnosis of MIKE and wears BiPAP at home. He denies interruption of his respiratory medication at home. Past Med Surg Social Fam HX - Past Medical History Medical history: arthritis, CHF, COPD, GERD, hyperlipidemia, hypertension Additional medical history: home oxygen at all times. sleep apnea. ANEMIA. HEMORRHOIDS Psychiatric history: no psych history - Past Surgical History Surgical History: arthroscopy, orthopedic, other, other Additional surgical history: Left total shoulder replacement hernia repair. biceps tenodesis. hemorrhoidectomy. EGD. colonoscopy. ORIF RIGHT ANKLE. Right fot - Social History Smoking Status: Former smoker Smokeless Tobacco Status: No Alcohol use: occasionally Drug use: none - Family History Sister Adopted: No Family Member Ethnicity: Non- Living Status: Still Living Hx Family Respiratory Disorders: Yes Internal Medicine - H&P: Meds Albuterol Sulfate [Albuterol Inhaler] 2 puff IH Q4HR PRN 04/05/15 [History] Amlodipine [Norvasc] 10 mg PO DAILY 04/05/15 [History] Ipratropium/Albuterol Sulfate [Combivent Respimat Inhal [place]] 2 puff IH BID 04/05/15 [History] Lisinopril [Zestril] 40 mg PO DAILY 04/05/15 [History] Tiotropium [Spiriva] 1 cap IH DAILY 04/05/15 [History] Aspirin 81 mg PO DAILY #30 tab.chew 01/31/16 [Rx] Atorvastatin [Lipitor] 40 mg PO HS #30 tablet 01/31/16 [Rx] Furosemide [Lasix] 40 mg PO BID #60 tab 01/31/16 [Rx] Metoprolol XL (24 HR) Succ [Toprol Xl] 100 mg PO DAILY #30 tab.er.24h 01/31/16 [Rx] Omeprazole [PriLOSEC] 40 mg PO DAILY 11/27/16 [History] Budesonide/Formoterol 160/4.5 [Symbicort 160/4.5] 2 puff IH BIDR 08/11/17 [History] Folic Acid 1 mg PO DAILY 08/11/17 [History] Thiamine (B-1) [Vitamin B-1] 100 mg PO DAILY 08/11/17 [History] Daliresp 500 mcg PO DAILY 05/22/18 [History] amLODIPine 10 mg PO DAILY 05/22/18 [History] Ascorbic Acid [Vitamin C] 500 mg PO 0630 #30 tablet 05/23/18 [Rx] Ferrous Sulfate [Iron] 325 mg PO DAILY #0 05/23/18 [Rx] Lactobacillus [Culturelle] 1 each PO BID #6 cap.sprink 05/23/18 [Rx] predniSONE [PredniSONE] 20 mg PO BIDWM #12 tablet 05/23/18 [Rx] Allergy/AdvReac Type Severity Reaction Status Date / Time No Known Allergies Allergy Verified 05/28/18 14:10 All Systems PM: A 10-system review of systems was performed and is negative for pertinent findings except as documented above in the HPI. Review of systems: Review of systems from his April 2018 [facility] hospitalization were reviewed and revised as below. Gen.: His weight has increased from 93.695 kg on 05/22/2018 to present weight of 98.067 kg. Cardiovascular: Has history of hypertension. He denies MT but states has a diagnosis CHF. An echocardiogram done 01/22/2016 showed LVEF 45-50%. There was no significant valvular abnormalities seen. There was indeterminant diastolic function reported but E/A ratio was 0.7. A heart catheter January 2016 showed minimal coronary artery disease. He denies DVT or pulmonary embolus. Respiratory: As per history of present illness GI: He has GERD. He denies disorders of his liver gallbladder or exocrine pancreas. He reports having melena for the past 2 days. He states most recent colonoscopy was approximately 2015 with single polypectomy done. He has used occasional OTC ibuprofen. : He denies hematuria dysuria or kidney stones Neurologic: He denies large distribution strokes or seizures Endocrine: He denies diabetes thyroid disease or hyperlipidemia Hematology/oncology: Denies blood disorders cancers or anemia Psychiatric: He denies anxiety depression or other mental health issues [place] skeletal: He had right foot fracture August 2016 with operative repair. He has had left total shoulder replacement. He has DJD. He had hyperuricemia on labs December 2015 but denies gout or other bone joint or muscle disorders. - Constitutional Vitals: Temp Pulse Resp BP Pulse Ox 97.8 F 103 16 123/62 93 12/24/18 06:31 12/24/18 06:31 12/24/18 07:42 12/24/18 06:31 12/24/18 07:42 Exam: Gen.: He is a well-developed well-nourished male sitting on the side of bed who appears slightly dyspneic at present time HEENT: Head is atraumatic and normal cephalic. Eyes: EOMI. There is no scleral icterus. Mouth: Mucosa is moist. Neck: There is no thyromegaly or adenopathy noted. Heart: Regular without murmurs gallops or ectopics Lungs: He has prolonged expiratory phase and mild diffuse wheezing. He has diminished breath sounds diffusely. Abdomen: There is mild tenderness in palpation of the right upper quadrant. There is very minimal discomfort in the left upper quadrant to palpation. No masses or guarding are noted. Extremities: There is no cyanosis edema or clubbing noted. Dorsalis pedis and posterior tibial pulses are trace to 1+ palpable bilaterally. Neurologic: Mental status: He is talkative and a good historian. Cranial nerves: Smile is symmetric. Forehead wrinkles bilaterally. Tongue protrudes midline. EOMI. Motor: There is no pronator drift. Cerebellar: Finger to nose is intact bilaterally. Skin: Warm and dry Internal Med - H&P Results - Labs CBC & Chem 7: 12/24/18 07:02 12/24/18 07:02 Labs: Short CBC 12/23/18 12/24/18 Range/Units 15:11 07:02 WBC 11.0 10.4 (4.3-11.1) K/mcL Hgb 10.3 L 9.5 L (12.9-16.9) g/dL Hct 35.7 L 33.7 L (37.5-50.1) % Plt Count 375 403 H (140-400) K/mcL Neutrophils # 9.4 H 8.6 (1.6-8.9) K/mcL BMP 12/23/18 12/24/18 15:11 07:02 Sodium 138 143 Potassium 4.4 4.2 Chloride 100 105 Carbon Dioxide 32 H 35 H BUN 26 H 20 Creatinine 1.01 0.84 Glucose 154 H 148 H Calcium 9.1 9.0 Cardiac Enzymes 12/23/18 Range/Units 15:11 Troponin I < 0.03 (< 0.04) ng/mL Liver Function 12/23/18 Range/Units 15:11 Total Bilirubin 0.3 (0.3-1.0) mg/dL Direct Bilirubin 0.0 (0.0-0.2) mg/dL AST 22 (13-39) Units/L ALT 17 (7-52) Units/L Alkaline Phosphatase 80 (34-104) Units/L Albumin 3.8 (3.5-5.7) g/dL - Impressions ITS Impressions Chest X-Ray 12/23/18 14:57 IMPRESSION: 1. No significant change in the appearance of the chest. 2. Somewhat reticular opacities are again seen in the lung bases bilaterally. D/ / Titus Montana MD / Titus Montana MD Interpreting Provider: Titus Montana MD
[2018-12-24] MEDS ORDERED: Doxycycline 100 MG in 0.9 % Sodium Chloride Mini Bag 100 ML IVPB SCH (10:14)
[2018-12-24] MEDS: Budesonide/Formoterol 160/4.5 1 PUFF INH IH SCH ×2 (11:01→22:17)
[2018-12-24 11:22] LABS: Procalcitonin 0.03 ng/mL (0.00-0.15)
[2018-12-24] MEDS: Metoprolol XL (24 HR) Succ 50 MG TAB.ER.24H PO SCH (11:45)
[2018-12-24] MEDS ORDERED: Azithromycin 500 MG in 0.9 % Sodium Chloride 250 ML IVPB ONE (15:54)
[2018-12-24] MEDS ORDERED: cefTRIAXone 2,000 MG in Water for inj. (sterile) 20 ML IVP SCH (16:00)
[2018-12-24] MEDS: Furosemide 40 MG TABLET PO SCH (16:58)
[2018-12-24] MEDS: Acetaminophen 325 MG TABLET PO PRN (17:07)
[2018-12-24] MEDS: Lactobacillus 1 EACH CAP.SPRINK PO SCH (20:04)
--- NOTE | 2018-12-24 23:33 | Electrocardiograph Report ---
Rupert Signadyne Test Date: 2018-12-23 Pat Name: Cedrick Isaac Department: EDP-14 Room: [facility] Gender: M Internal Medicine Specialist: : 1960 Requested By: Ezio Lester Order Number: [id number] Jeannie MD: Kayla Corey Measurements Intervals [place] Rate: 86 P: 68 KS: 162 QRS: 76 QRSD: 96 T: 73 QT: 334 QTc: 400 Interpretive Statements Sinus rhythm Electronically Signed On 12-24-2018 23:31:52 EDT by Kayla Corey
[2018-12-25] MEDS ORDERED: Doxycycline 100 MG in 0.9 % Sodium Chloride Mini Bag 100 ML IVPB SCH
[2018-12-25] MEDS: Ipratropium/Albuterol Neb 3 ML IH SCH ×3 (04:30→08:19)
[2018-12-25] MEDS: Ascorbic Acid 500 MG TABLET PO SCH (06:02)
[2018-12-25] MEDS: Acetaminophen 325 MG TABLET PO PRN (06:05)
[2018-12-25 06:09] LABS: Basophils % 0.2 %; Hematocrit 32.1 % (37.5-50.1); Hemoglobin 9.2 g/dL (12.9-16.9); Immature Granulocytes % 4.3 % (0-4); Lymphocytes # 1.3 K/mcL (0.6-4.6); Lymphocytes % 10.1 %; Mean Corpuscular HGB Conc 28.7 g/dL (31.6-35.5); Mean Corpuscular Hemoglobin 22.4 pg (28.0-33.3); Mean Corpuscular Volume 78.1 fL (83.0-100.0); Mean Platelet Volume 9.3 fL (9.4-12.4); Monocytes # 1.1 K/mcL (0.0-1.3); Monocytes % 9.1 %; Nucleated Red Blood Cells 1.1 /100 WBC (0); Platelet Count 382 K/mcL (140-400); Red Blood Count 4.11 M/mcL (4.19-5.50); Red Cell Distribution Width 19.4 % (11.5-14.5); Segmented Neutrophils % 76.3 %; White Blood Count 12.4 K/mcL (4.3-11.1)
[2018-12-25 06:48] LABS: Neutrophils # 9.5 K/mcL (1.6-8.9)
[2018-12-25] MEDS: Lactobacillus 1 EACH CAP.SPRINK PO SCH ×2 (08:04→20:34)
[2018-12-25] MEDS: amLODIPine 5 MG TABLET PO SCH (08:04)
[2018-12-25] MEDS: predniSONE 20 MG TABLET PO SCH ×2 (08:04→16:35)
[2018-12-25] MEDS: Lisinopril 20 MG TABLET PO SCH (08:04)
[2018-12-25] MEDS: Aspirin 81 MG TAB.CHEW PO SCH (08:04)
[2018-12-25] MEDS: Metoprolol XL (24 HR) Succ 50 MG TAB.ER.24H PO SCH (08:05)
[2018-12-25] MEDS: Thiamine (B-1) 100 MG TABLET PO SCH (08:05)
[2018-12-25] MEDS: Folic Acid 1 MG TABLET PO SCH (08:05)
[2018-12-25] MEDS: Furosemide 40 MG TABLET PO SCH ×2 (08:06→16:35)
[2018-12-25] MEDS: Tiotropium 18 MCG inhalation IH SCH ×2 (08:19→08:39)
[2018-12-25] MEDS: Budesonide/Formoterol 160/4.5 1 PUFF INH IH SCH ×2 (08:19→22:24)
--- NOTE | 2018-12-25 10:12 | Internal Med Progress Note ---
Date of Encounter: 12/25/18 Time of Encounter: 10:00 - Assessment and plan (1) COPD with exacerbation Current Visit: No Status: Acute Assessment and plan: December 25. WBC has risen slightly to 12.4 but left shift has decreased. Pro- calcitonin level WNL at 0.03. Discontinue antibiotics. (2) HTN (hypertension) Current Visit: No Status: Chronic Assessment and plan: December 25. Continue Toprol, lisinopril, and amlodipine. Qualifiers: Hypertension type: essential hypertension Qualified Code(s): I10 - Essential (primary) hypertension (3) Anemia Current Visit: No Status: Acute Assessment and plan: December 25. Hemoglobin slightly decreased to 9.2. Continue ferrous sulfate with ascorbic acid. Qualifiers: Anemia type: unspecified type Qualified Code(s): D64.9 - Anemia, unspecified - Subjective Interval history: December 25. He has no new complaints and feels better overall but not back to his baseline yet. Reports he slept better last night using BiPAP than the previous night when he did not use it. - Constitutional Vitals: Temp Pulse Resp BP Pulse Ox 98.2 F 86 20 139/76 92 12/25/18 07:16 12/25/18 07:16 12/25/18 08:20 12/25/18 07:16 12/25/18 08:20 Exam: Lungs show prolonged expiratory phase but no significant wheezing. Breath sounds are diminished overall. Heart is regular without murmurs gallops or ectopics with rate approximately 96/m. Extremities show PIPER hose in place. I reviewed his medications and lab results. Internal Medicine: Result - Labs CBC & Chem 7: 12/25/18 06:00 12/24/18 07:02 Labs: Short CBC 12/25/18 Range/Units 06:00 WBC 12.4 H (4.3-11.1) K/mcL Hgb 9.2 L (12.9-16.9) g/dL Hct 32.1 L (37.5-50.1) % Plt Count 382 (140-400) K/mcL Neutrophils # 9.5 H (1.6-8.9) K/mcL - ABG Interpretation ABG results: PT/INR, D-dimer PT 11.9 Seconds (9.4-12.1) 12/23/18 15:11 Consult Discharge Plan - Plan
[2018-12-25] MEDS: Albuterol 2.5 MG/3 ML NEBULIZER IH PRN (20:09)
[2018-12-26 05:56] LABS: Basophils # 0.1 K/mcL (0.0-0.2); Basophils % 0.6 %; Hematocrit 33.7 % (37.5-50.1); Hemoglobin 9.4 g/dL (12.9-16.9); Lymphocytes # 1.5 K/mcL (0.6-4.6); Lymphocytes % 11.8 %; Mean Corpuscular HGB Conc 27.9 g/dL (31.6-35.5); Mean Corpuscular Volume 78.9 fL (83.0-100.0); Mean Platelet Volume 10.2 fL (9.4-12.4); Monocytes # 1.5 K/mcL (0.0-1.3); Monocytes % 11.6 %; Platelet Count 433 K/mcL (140-400); Red Blood Count 4.27 M/mcL (4.19-5.50); Red Cell Distribution Width 19.6 % (11.5-14.5); White Blood Count 12.8 K/mcL (4.3-11.1)
[2018-12-26] MEDS: Acetaminophen 325 MG TABLET PO PRN (05:56)
[2018-12-26] MEDS: Ascorbic Acid 500 MG TABLET PO SCH (05:57)
[2018-12-26 06:03] LABS: BUN/Creatinine Ratio 20 (6-26); Blood Urea Nitrogen 17 mg/dL (6-20); Calcium 9.2 mg/dL (8.6-10.3); Carbon Dioxide 43 mEq/L (23-29); Chloride 97 mEq/L (98-107); Glucose 106 mg/dL (70-105); Osmolality,Calculated 296 (280-300); Sodium 142 mEq/L (136-145); eGFR For African Americans > 60 (> 60); eGFR For Non-African Americans > 60 (> 60)
[2018-12-26 06:46] LABS: Anisocytosis 2+ (Not Present); Hypochromasia Present (Not Present); Microcytosis Present (Not Present); Platelet Estimate Increased (Normal)
[2018-12-26] MEDS: Lactobacillus 1 EACH CAP.SPRINK PO SCH ×2 (09:55→19:49)
[2018-12-26] MEDS: Metoprolol XL (24 HR) Succ 50 MG TAB.ER.24H PO SCH (09:55)
[2018-12-26] MEDS: Lisinopril 20 MG TABLET PO SCH (09:55)
[2018-12-26] MEDS: Furosemide 40 MG TABLET PO SCH ×2 (09:55→17:26)
[2018-12-26] MEDS: amLODIPine 5 MG TABLET PO SCH (09:55)
[2018-12-26] MEDS: predniSONE 20 MG TABLET PO SCH ×2 (09:56→17:25)
[2018-12-26] MEDS: Folic Acid 1 MG TABLET PO SCH (09:56)
[2018-12-26] MEDS: Aspirin 81 MG TAB.CHEW PO SCH (09:56)
[2018-12-26] MEDS: Thiamine (B-1) 100 MG TABLET PO SCH (09:59)
[2018-12-26] MEDS: Tiotropium 18 MCG inhalation IH SCH (10:11)
[2018-12-26] MEDS: Budesonide/Formoterol 160/4.5 1 PUFF INH IH SCH ×2 (10:11→20:03)
[2018-12-26] MEDS: Albuterol 2.5 MG/3 ML NEBULIZER IH PRN ×2 (10:12→20:03)
--- NOTE | 2018-12-26 14:46 | Internal Med Progress Note ---
Date of Encounter: 12/26/18 Time of Encounter: 14:36 - Assessment and plan (1) COPD with exacerbation Current Visit: No Status: Acute Assessment and plan: December 25. WBC has risen slightly to 12.4 but left shift has decreased. Pro- calcitonin level WNL at 0.03. Discontinue antibiotics. December 26. WBC minimally changed at 12.8 with further decrease in left shift. He remains afebrile. Continue present Rx. (2) HTN (hypertension) Current Visit: No Status: Chronic Assessment and plan: December 25. Continue Toprol, lisinopril, and amlodipine. Qualifiers: Hypertension type: essential hypertension Qualified Code(s): I10 - Essential (primary) hypertension (3) Anemia Current Visit: No Status: Acute Assessment and plan: December 25. Hemoglobin slightly decreased to 9.2. Continue ferrous sulfate with ascorbic acid. December 26. Hemoglobin stable at 9.4. Qualifiers: Anemia type: unspecified type Qualified Code(s): D64.9 - Anemia, unspecified - Subjective Interval history: December 25. He has no new complaints and feels better overall but not back to his baseline yet. Reports he slept better last night using BiPAP than the previous night when he did not use it. December 26. He feels slightly improved but not back to his baseline. He still has "moments" when he feels significantly dyspneic. - Constitutional Vitals: Temp Pulse Resp BP Pulse Ox 98.0 F 74 20 131/79 92 12/26/18 07:09 12/26/18 07:09 12/26/18 10:11 12/26/18 07:09 12/26/18 10:11 Exam: He has mild prolonged expiratory phase with diffuse wheezing. No inspiratory crackles are heard. Heart is regular without murmurs gallops or ectopics. I reviewed his medications and lab results. Internal Medicine: Result - Labs CBC & Chem 7: 12/26/18 04:42 12/26/18 04:42 Labs: Short CBC 12/26/18 Range/Units 04:42 WBC 12.8 H (4.3-11.1) K/mcL Hgb 9.4 L (12.9-16.9) g/dL Hct 33.7 L (37.5-50.1) % Plt Count 433 H (140-400) K/mcL Neutrophils # 9.0 H (1.6-8.9) K/mcL BMP 12/26/18 04:42 Sodium 142 Potassium 4.0 Chloride 97 L Carbon Dioxide 43 H* BUN 17 Creatinine 0.84 Glucose 106 H Calcium 9.2 - ABG Interpretation ABG results: PT/INR, D-dimer PT 11.9 Seconds (9.4-12.1) 12/23/18 15:11 Consult Discharge Plan - Plan Referrals: Jose Hernandez DO [Primary Care Provider] - 1 week
[2018-12-27] MEDS: Ascorbic Acid 500 MG TABLET PO SCH (06:08)
[2018-12-27 08:31] VITALS: BP 129/76
[2018-12-27] MEDS: Aspirin 81 MG TAB.CHEW PO SCH (09:01)
[2018-12-27] MEDS: Lisinopril 20 MG TABLET PO SCH (09:01)
[2018-12-27] MEDS: predniSONE 20 MG TABLET PO SCH (09:02)
[2018-12-27] MEDS: Folic Acid 1 MG TABLET PO SCH (09:02)
[2018-12-27] MEDS: amLODIPine 5 MG TABLET PO SCH (09:02)
[2018-12-27] MEDS: Metoprolol XL (24 HR) Succ 50 MG TAB.ER.24H PO SCH (09:02)
[2018-12-27] MEDS: Lactobacillus 1 EACH CAP.SPRINK PO SCH (09:02)
[2018-12-27] MEDS: Furosemide 40 MG TABLET PO SCH (09:02)
[2018-12-27] MEDS: Thiamine (B-1) 100 MG TABLET PO SCH (09:02)
--- NOTE | 2018-12-27 09:21 | Discharge Summary ---
Orders not resulted at time of discharge: Pending orders 12/23/18 15:11 Culture,Blood [BC] Stat Date of Encounter: 12/27/18 Time of Encounter: 09:10 - Discharge Diagnosis (1) COPD with exacerbation Priority: Primary Status: Acute (2) HTN (hypertension) Priority: Secondary Status: Chronic Qualifiers: Hypertension type: essential hypertension Qualified Code(s): I10 - Essential (primary) hypertension (3) Anemia Priority: Secondary Status: Acute Qualifiers: Anemia type: unspecified type Qualified Code(s): D64.9 - Anemia, unspecified Hospital course: Mr. Isaac is a 58 year old male who came to emergency room complaining of one-week history of dyspnea, productive cough , and fevers and chills. He saw his PCP December 20 and received a Z-Evan and prednisone. He does not feel significantly improved so came to emergency room. He was evaluated and was felt to have exacerbation of COPD. He was admitted to [facility] floor for ongoing c are needs. Initial orders were written by the emergency room physician and I saw him on December 24 and performed the history and physical. He was started on Rocephin and Zithromax with Solu-Medrol in emergency room. Pro-calcitonin level returned WNL at 0.03. Antibiotics were discontinued. Prednisone was continued. He had gradual improvement in his breathing and felt stable for discharge home 12/27/2018. Anemia testing showed iron 16, transferrin saturation 4%, transferrin 267, ferritin 53, B12 376, and folate 7.0. I instructed him to resume ferrous sulfate with ascorbic acid.. His PCP can determine if further workup is needed determine the cause of the anemia. He uses aspirin 81 mg daily which may be significant contributor. He will follow with his PCP within 1 week. - Time Spent with Patient Total time spent providing and/or coordinating discharge services: - Discharge Medications Prescriptions: Continued Tiotropium [Spiriva] 1 cap IH DAILY Albuterol Sulfate [Albuterol Inhaler] 2 puff IH Q4HR PRN PRN Reason: Shortness Of Breath Lisinopril [Zestril] 40 mg PO DAILY Amlodipine [Norvasc] 10 mg PO DAILY Aspirin 81 mg PO DAILY #30 tab.chew Atorvastatin [Lipitor] 40 mg PO HS #30 tablet Metoprolol XL (24 HR) Succ [Toprol Xl] 100 mg PO DAILY #30 tab.er.24h Furosemide [Lasix] 40 mg PO BID #60 tab Omeprazole [PriLOSEC] 40 mg PO DAILY Budesonide/Formoterol 160/4.5 [Symbicort 160/4.5] 2 puff IH BIDR Folic Acid 1 mg PO DAILY Thiamine (B-1) [Vitamin B-1] 100 mg PO DAILY Daliresp 500 mcg PO DAILY amLODIPine 10 mg PO DAILY Ascorbic Acid [Vitamin C] 500 mg PO 0630 #30 tablet Lactobacillus [Culturelle] 1 each PO BID #6 cap.sprink Ferrous Sulfate [Iron] 325 mg PO DAILY #0 predniSONE [PredniSONE] 20 mg PO BIDWM #12 tablet Discontinued Ipratropium/Albuterol Sulfate [Combivent Respimat Inhal [place]] 2 puff IH BID Home Medications: Albuterol Sulfate [Albuterol Inhaler] 2 puff IH Q4HR PRN 04/05/15 [History] Amlodipine [Norvasc] 10 mg PO DAILY 04/05/15 [History] Lisinopril [Zestril] 40 mg PO DAILY 04/05/15 [History] Tiotropium [Spiriva] 1 cap IH DAILY 04/05/15 [History] Aspirin 81 mg PO DAILY #30 tab.chew 01/31/16 [Rx] Atorvastatin [Lipitor] 40 mg PO HS #30 tablet 01/31/16 [Rx] Furosemide [Lasix] 40 mg PO BID #60 tab 01/31/16 [Rx] Metoprolol XL (24 HR) Succ [Toprol Xl] 100 mg PO DAILY #30 tab.er.24h 01/31/16 [Rx] Omeprazole [PriLOSEC] 40 mg PO DAILY 11/27/16 [History] Budesonide/Formoterol 160/4.5 [Symbicort 160/4.5] 2 puff IH BIDR 08/11/17 [History] Folic Acid 1 mg PO DAILY 08/11/17 [History] Thiamine (B-1) [Vitamin B-1] 100 mg PO DAILY 08/11/17 [History] Daliresp 500 mcg PO DAILY 05/22/18 [History] amLODIPine 10 mg PO DAILY 05/22/18 [History] Ascorbic Acid [Vitamin C] 500 mg PO 0630 #30 tablet 05/23/18 [Rx] Ferrous Sulfate [Iron] 325 mg PO DAILY #0 05/23/18 [Rx] Lactobacillus [Culturelle] 1 each PO BID #6 cap.sprink 05/23/18 [Rx] predniSONE [PredniSONE] 20 mg PO BIDWM #12 tablet 12/27/18 [Rx] Allergies/Adverse Reactions: Allergy/AdvReac Type Severity Reaction Status Date / Time No Known Allergies Allergy Verified 05/28/18 14:10 Date of admission: 12/23/18 16:04 Primary care physician: Jose Hernandez - Constitutional Vitals: Temp Pulse Resp BP Pulse Ox 97.9 F 77 18 129/76 96 12/27/18 06:56 12/27/18 06:56 12/27/18 06:56 12/27/18 06:56 12/27/18 06:56 - Patient Status Disposition: Home, Self-Care Condition: Fair - Discharge Instructions Follow Up With: Jose Hernandez DO [Primary Care Provider] - 1 week Forms: ED Satisfaction Letter - Diet and Activity Activity: resume usual activities as tolerated, wear oxygen at all times Diet: advance to your usual diet
[2018-12-27] MEDS: Albuterol 2.5 MG/3 ML NEBULIZER IH PRN (10:08)
[2018-12-27] MEDS: Tiotropium 18 MCG inhalation IH SCH (10:09)
[2018-12-27] MEDS: Budesonide/Formoterol 160/4.5 1 PUFF INH IH SCH (10:09)
== END 2018-12-27 16:30 | disposition home or self-care (01) ==
LOC: INPPIK 14:41 → EMEROOPIK 14:41 → INPPIK 18:00
PROVIDERS: ADMIT Internal Medicine; ATTEND Internal Medicine

== ENCOUNTER 2021-04-24 10:22 | Inpatient (IN) ==
[2021-04-24] MEDS ORDERED: Ipratropium/Albuterol Neb 3 ML IH ONE ×2 (10:45→12:33)
[2021-04-24 11:03] LABS: Basophils % 0.4 %; Eosinophils % 0.1 %; Hematocrit 44.9 % (37.5-50.1); Hemoglobin 13.9 g/dL (12.9-16.9); Immature Granulocytes % 0.4 % (0-4); Lymphocytes # 0.5 K/mcL (0.6-4.6); Lymphocytes % 6.9 %; Mean Corpuscular Hemoglobin 31.6 pg (28.0-33.3); Mean Platelet Volume 10.3 fL (9.4-12.4); Monocytes # 1.4 K/mcL (0.0-1.3); Monocytes % 19.6 %; Neutrophils # 5.2 K/mcL (1.6-8.9); Platelet Count 208 K/mcL (140-400); Segmented Neutrophils % 72.6 %; White Blood Count 7.1 K/mcL (4.3-11.1)
[2021-04-24 11:12] LABS: INR 1.2; Prothrombin Time 13.4 Seconds (9.4-12.1)
[2021-04-24 11:15] LABS: Activated Partial Thrombo Time 37.5 Seconds (26.0-36.0); Platelet Estimate Normal (Normal)
[2021-04-24 11:19] LABS: Alanine Aminotransferase 15 Units/L (7-52); Albumin 3.8 g/dL (3.5-5.7); Alkaline Phosphatase 102 Units/L (34-104); Aspartate Amino Transferase 17 Units/L (13-39); BUN/Creatinine Ratio 18 (6-26); Bilirubin,Total 0.4 mg/dL (0.3-1.0); Blood Urea Nitrogen 13 mg/dL (8-23); Calcium 9.2 mg/dL (8.6-10.3); Carbon Dioxide 39 mEq/L (23-29); Chloride 96 mEq/L (98-107); Globulin 3.8 g/dL (2.4-3.5); Glucose 132 mg/dL (70-105); Magnesium 2.1 mg/dL (1.6-2.6); Osmolality,Calculated 290 (280-300); Phosphorous 2.3 mg/dL (2.7-4.5); Potassium 4.2 mEq/L (3.5-5.1); Sodium 139 mEq/L (136-145); Total Protein 7.6 g/dL (6.4-8.9); eGFR For African Americans > 60 (> 60); eGFR For Non-African Americans > 60 (> 60)
[2021-04-24 11:22] LABS: Troponin I 0.03 ng/mL (< 0.04)
[2021-04-24] MEDS ORDERED: Isovue-370 500 ML BOTTLE IVP ONE (12:28)
[2021-04-24] MEDS ORDERED: Acetaminophen 325 MG TABLET PO PRN (13:42)
[2021-04-24] MEDS ORDERED: Naloxone 0.4 MG/ML INJ IVP PRN (13:42)
[2021-04-24] MEDS ORDERED: Ondansetron 4 MG/2 ML VIAL IVP PRN (13:42)
[2021-04-24] MEDS ORDERED: Albuterol 2.5 MG/3 ML NEBULIZER IH PRN (13:46)
[2021-04-24] MEDS: Furosemide 20 MG TABLET PO SCH (16:27)
[2021-04-24] MEDS: MethylPREDNISolone 40 MG/ML VIAL IVP SCH (17:19)
[2021-04-24 17:42] LABS: Adenovirus Not Detected (Not Detect); Coronavirus 229E Not Detected (Not Detect); Coronavirus HKU1 Not Detected (Not Detect); Coronavirus NL63 Not Detected (Not Detect); Coronavirus OC43 Not Detected (Not Detect); Human Metapneumovirus Not Detected (Not Detect); Human Rhinovirus/Enterovirus Not Detected (Not Detect); Influenza A Subtype 2009 H1 Not Detected (Not Detect); Influenza B Not Detected (Not Detect); SARS-CoV-2 Not Detected (Not Detect)
[2021-04-24 17:43] LABS: Bordetella Pertussis Not Detected (Not Detect); Chlamydophila pneumoniae Not Detected (Not Detect); Mycoplasma pneumoniae Not Detected (Not Detect); Parainfluenza Virus 1 Not Detected (Not Detect); Parainfluenza Virus 2 Not Detected (Not Detect); Parainfluenza Virus 3 Not Detected (Not Detect); Parainfluenza Virus 4 Not Detected (Not Detect); Respiratory Syncytial Virus Not Detected (Not Detect)
[2021-04-24] MEDS ORDERED: Budesonide/Formoterol 160/4.5 1 PUFF INH IH SCH (22:00)
[2021-04-25] MEDS: Budesonide/Formoterol 160/4.5 1 PUFF INH IH SCH ×3 (02:21→21:20)
[2021-04-25] MEDS: Ascorbic Acid 500 MG TABLET PO SCH (06:08)
[2021-04-25] MEDS: MethylPREDNISolone 40 MG/ML VIAL IVP SCH ×4 (06:09→17:45)
[2021-04-25] MEDS: *HR* Enoxaparin 40 MG/0.4 ML SYRINGE SQ SCH (06:09)
[2021-04-25 07:16] LABS: Hematocrit 45.8 % (37.5-50.1); Hemoglobin 13.7 g/dL (12.9-16.9); Mean Corpuscular HGB Conc 29.9 g/dL (31.6-35.5); Mean Corpuscular Hemoglobin 31.2 pg (28.0-33.3); Mean Corpuscular Volume 104.3 fL (83.0-100.0); Platelet Count 245 K/mcL (140-400); Red Blood Count 4.39 M/mcL (4.19-5.50); Red Cell Distribution Width 12.8 % (11.5-14.5); White Blood Count 5.7 K/mcL (4.3-11.1)
[2021-04-25 07:37] LABS: BUN/Creatinine Ratio 22 (6-26); Blood Urea Nitrogen 19 mg/dL (8-23); Calcium 9.2 mg/dL (8.6-10.3); Chloride 94 mEq/L (98-107); Glucose 167 mg/dL (70-105); Magnesium 2.4 mg/dL (1.6-2.6); Osmolality,Calculated 298 (280-300); Potassium 4.5 mEq/L (3.5-5.1); Sodium 141 mEq/L (136-145); eGFR For African Americans > 60 (> 60); eGFR For Non-African Americans > 60 (> 60)
[2021-04-25 07:39] LABS: Carbon Dioxide > 45 mEq/L (23-29)
[2021-04-25] MEDS: Metoprolol XL (24 HR) Succ 50 MG TAB.ER.24H PO SCH (08:13)
[2021-04-25] MEDS: Furosemide 20 MG TABLET PO SCH (08:13)
[2021-04-25] MEDS: amLODIPine 5 MG TABLET PO SCH (08:13)
[2021-04-25] MEDS: lisinopriL 20 MG TABLET PO SCH (08:13)
[2021-04-25] MEDS: Acetylcysteine [N-Acetyl-L-Cysteine] 600 MG Capsule PO SCH (08:14)
[2021-04-25 08:18] LABS: ABG Base Excess 10 mEq/L (-2 to 3); ABG HCO3 44 mEq/L (21-27); ABG Oxygen Saturation 95 % (95-98); ABG PCO2 114 mmHg (35-45); ABG PO2 103 mmHg (85-104); ABG TCO2 48 mEq/L (20-26)
[2021-04-25] MEDS: Aspirin 81 MG TAB.CHEW PO SCH (08:18)
[2021-04-25] MEDS: Albuterol 2.5 MG/3 ML NEBULIZER IH PRN (08:37)
[2021-04-25] MEDS: Piperacillin/Tazobactam 3.375 GM in 0.9 % Sodium Chloride Mini Bag 100 ML IVPB SCH ×2 (10:10→17:45)
[2021-04-25 10:37] LABS: ABG Base Excess 9 mEq/L (-2 to 3); ABG HCO3 43 mEq/L (21-27); ABG Oxygen Saturation 86 % (95-98); ABG PCO2 101 mmHg (35-45); ABG PH 7.23 pH Units (7.32-7.45); ABG PO2 65 mmHg (85-104); ABG TCO2 46 mEq/L (20-26); Blood Gas Pressure Support 16 cm H2O
[2021-04-25] MEDS: Tiotropium 10 INH DOSE IH SCH (10:48)
[2021-04-25 13:58] LABS: ABG Base Excess 12 mEq/L (-2 to 3); ABG HCO3 45 mEq/L (21-27); ABG Oxygen Saturation 86 % (95-98); ABG PCO2 102 mmHg (35-45); ABG PH 7.26 pH Units (7.32-7.45); ABG PO2 65 mmHg (85-104); ABG TCO2 48 mEq/L (20-26); Blood Gas Pressure Support 16 cm H2O
[2021-04-25] MEDS: Furosemide 20 MG/2 ML VIAL IVP SCH (20:41)
[2021-04-26] MEDS: MethylPREDNISolone 40 MG/ML VIAL IVP SCH ×4 (00:03→17:48)
[2021-04-26] MEDS: Piperacillin/Tazobactam 3.375 GM in 0.9 % Sodium Chloride Mini Bag 100 ML IVPB SCH ×2 (00:13→08:02)
[2021-04-26 04:22] LABS: ABG Base Excess 10 mEq/L (-2 to 3); ABG HCO3 42 mEq/L (21-27); ABG Oxygen Saturation 93 % (95-98); ABG PCO2 88 mmHg (35-45); ABG PH 7.28 pH Units (7.32-7.45); ABG PO2 79 mmHg (85-104); ABG TCO2 44 mEq/L (20-26); Blood Gas Pressure Support 8 cm H2O
[2021-04-26] MEDS: *HR* Enoxaparin 40 MG/0.4 ML SYRINGE SQ SCH (05:57)
[2021-04-26] MEDS: Ascorbic Acid 500 MG TABLET PO SCH (06:00)
[2021-04-26 06:56] LABS: Basophils % 0.1 %; Hematocrit 43.5 % (37.5-50.1); Immature Granulocytes % 0.6 % (0-4); Lymphocytes # 0.5 K/mcL (0.6-4.6); Lymphocytes % 5.9 %; Mean Corpuscular HGB Conc 29.9 g/dL (31.6-35.5); Mean Corpuscular Hemoglobin 31.3 pg (28.0-33.3); Mean Corpuscular Volume 104.6 fL (83.0-100.0); Mean Platelet Volume 10.6 fL (9.4-12.4); Monocytes # 0.9 K/mcL (0.0-1.3); Monocytes % 10.8 %; Neutrophils # 7.1 K/mcL (1.6-8.9); Nucleated Red Blood Cells 0.5 /100 WBC (0); Platelet Count 254 K/mcL (140-400); Red Blood Count 4.16 M/mcL (4.19-5.50); Segmented Neutrophils % 82.6 %; White Blood Count 8.6 K/mcL (4.3-11.1)
[2021-04-26 07:43] LABS: BUN/Creatinine Ratio 34 (6-26); Blood Urea Nitrogen 33 mg/dL (8-23); Calcium 9.1 mg/dL (8.6-10.3); Carbon Dioxide 44 mEq/L (23-29); Chloride 97 mEq/L (98-107); Glucose 174 mg/dL (70-105); Osmolality,Calculated 307 (280-300); Potassium 4.2 mEq/L (3.5-5.1); Sodium 143 mEq/L (136-145); eGFR For African Americans > 60 (> 60); eGFR For Non-African Americans > 60 (> 60)
[2021-04-26] MEDS: amLODIPine 5 MG TABLET PO SCH (08:01)
[2021-04-26] MEDS: Metoprolol XL (24 HR) Succ 50 MG TAB.ER.24H PO SCH (08:01)
[2021-04-26] MEDS: Aspirin 81 MG TAB.CHEW PO SCH (08:01)
[2021-04-26] MEDS: lisinopriL 20 MG TABLET PO SCH (08:01)
[2021-04-26] MEDS: Furosemide 20 MG/2 ML VIAL IVP SCH ×2 (08:02→20:08)
[2021-04-26] MEDS: Acetylcysteine [N-Acetyl-L-Cysteine] 600 MG Capsule PO SCH (08:03)
[2021-04-26] MEDS: Tiotropium 10 INH DOSE IH SCH (08:40)
[2021-04-26] MEDS: Budesonide/Formoterol 160/4.5 1 PUFF INH IH SCH ×2 (08:40→22:31)
[2021-04-26] MEDS ORDERED: Benzonatate 100 MG CAPSULE PO PRN (13:41)
[2021-04-26] MEDS: Azithromycin 500 MG in 0.9 % Sodium Chloride 250 ML IVPB SCH (15:16)
[2021-04-26] MEDS: Albuterol 2.5 MG/3 ML NEBULIZER IH PRN (15:30)
[2021-04-27] MEDS: MethylPREDNISolone 40 MG/ML VIAL IVP SCH ×5 (00:17→20:30)
[2021-04-27] MEDS: *HR* Enoxaparin 40 MG/0.4 ML SYRINGE SQ SCH (06:23)
[2021-04-27] MEDS: Ascorbic Acid 500 MG TABLET PO SCH (06:24)
[2021-04-27 08:20] LABS: Basophils % 0.2 %; Hematocrit 45.1 % (37.5-50.1); Hemoglobin 13.4 g/dL (12.9-16.9); Immature Granulocytes % 0.8 % (0-4); Lymphocytes # 0.8 K/mcL (0.6-4.6); Lymphocytes % 7.9 %; Mean Corpuscular HGB Conc 29.7 g/dL (31.6-35.5); Mean Corpuscular Hemoglobin 31.2 pg (28.0-33.3); Mean Corpuscular Volume 104.9 fL (83.0-100.0); Mean Platelet Volume 10.7 fL (9.4-12.4); Monocytes # 0.7 K/mcL (0.0-1.3); Monocytes % 7.6 %; Neutrophils # 8.1 K/mcL (1.6-8.9); Nucleated Red Blood Cells 0.2 /100 WBC (0); Platelet Count 291 K/mcL (140-400); Red Cell Distribution Width 13.3 % (11.5-14.5); Segmented Neutrophils % 83.5 %; White Blood Count 9.7 K/mcL (4.3-11.1)
[2021-04-27 08:49] LABS: BUN/Creatinine Ratio 41 (6-26); Blood Urea Nitrogen 38 mg/dL (8-23); Calcium 9.1 mg/dL (8.6-10.3); Carbon Dioxide 45 mEq/L (23-29); Chloride 97 mEq/L (98-107); Glucose 183 mg/dL (70-105); Magnesium 2.4 mg/dL (1.6-2.6); Osmolality,Calculated 312 (280-300); Potassium 4.1 mEq/L (3.5-5.1); Sodium 144 mEq/L (136-145); eGFR For African Americans > 60 (> 60); eGFR For Non-African Americans > 60 (> 60)
[2021-04-27] MEDS: Tiotropium 10 INH DOSE IH SCH (10:35)
[2021-04-27] MEDS: Budesonide/Formoterol 160/4.5 1 PUFF INH IH SCH ×2 (10:36→21:00)
[2021-04-27] MEDS: Albuterol 2.5 MG/3 ML NEBULIZER IH PRN ×2 (10:44→21:10)
[2021-04-27] MEDS: Metoprolol XL (24 HR) Succ 50 MG TAB.ER.24H PO SCH (11:11)
[2021-04-27] MEDS: Furosemide 20 MG/2 ML VIAL IVP SCH ×2 (11:11→20:30)
[2021-04-27] MEDS: lisinopriL 20 MG TABLET PO SCH (11:12)
[2021-04-27] MEDS: Aspirin 81 MG TAB.CHEW PO SCH (11:12)
[2021-04-27] MEDS: amLODIPine 5 MG TABLET PO SCH (11:12)
[2021-04-27] MEDS: Acetylcysteine [N-Acetyl-L-Cysteine] 600 MG Capsule PO SCH (11:31)
[2021-04-27] MEDS ORDERED: MethylPREDNISolone 40 MG/ML VIAL IVP SCH (15:00)
[2021-04-27] MEDS: Azithromycin 500 MG in 0.9 % Sodium Chloride 250 ML IVPB SCH (15:15)
[2021-04-27] MEDS: Cefdinir 300 MG CAPSULE PO SCH (20:30)
[2021-04-27] MEDS ORDERED: Cefdinir 300 MG CAPSULE PO SCH (21:00)
[2021-04-28] MEDS: MethylPREDNISolone 40 MG/ML VIAL IVP SCH ×2 (03:08→09:20)
[2021-04-28] MEDS: *HR* Enoxaparin 40 MG/0.4 ML SYRINGE SQ SCH (06:07)
[2021-04-28] MEDS: Ascorbic Acid 500 MG TABLET PO SCH (06:07)
[2021-04-28 07:22] VITALS: BP 102/69; PULSE 99; RESP 20; TEMP 97.9
[2021-04-28 08:01] LABS: Basophils % 0.3 %; Hematocrit 44.8 % (37.5-50.1); Hemoglobin 13.2 g/dL (12.9-16.9); Immature Granulocytes % 1.4 % (0-4); Lymphocytes # 0.6 K/mcL (0.6-4.6); Lymphocytes % 6.5 %; Mean Corpuscular HGB Conc 29.5 g/dL (31.6-35.5); Mean Corpuscular Hemoglobin 31.2 pg (28.0-33.3); Mean Corpuscular Volume 105.9 fL (83.0-100.0); Mean Platelet Volume 10.4 fL (9.4-12.4); Monocytes # 0.6 K/mcL (0.0-1.3); Monocytes % 6.2 %; Neutrophils # 7.7 K/mcL (1.6-8.9); Platelet Count 284 K/mcL (140-400); Red Blood Count 4.23 M/mcL (4.19-5.50); Red Cell Distribution Width 13.2 % (11.5-14.5); Segmented Neutrophils % 85.6 %
[2021-04-28 08:57] LABS: BUN/Creatinine Ratio 41 (6-26); Blood Urea Nitrogen 37 mg/dL (8-23); Calcium 8.8 mg/dL (8.6-10.3); Carbon Dioxide > 45 mEq/L (23-29); Chloride 97 mEq/L (98-107); Glucose 172 mg/dL (70-105); Magnesium 2.5 mg/dL (1.6-2.6); Osmolality,Calculated 311 (280-300); Potassium 4.4 mEq/L (3.5-5.1); Sodium 144 mEq/L (136-145); eGFR For African Americans > 60 (> 60); eGFR For Non-African Americans > 60 (> 60)
[2021-04-28] MEDS: Aspirin 81 MG TAB.CHEW PO SCH (09:18)
[2021-04-28] MEDS: lisinopriL 20 MG TABLET PO SCH (09:18)
[2021-04-28] MEDS: Cefdinir 300 MG CAPSULE PO SCH (09:19)
[2021-04-28] MEDS: amLODIPine 5 MG TABLET PO SCH (09:19)
[2021-04-28] MEDS: Metoprolol XL (24 HR) Succ 50 MG TAB.ER.24H PO SCH (09:20)
[2021-04-28] MEDS: Acetylcysteine [N-Acetyl-L-Cysteine] 600 MG Capsule PO SCH (09:20)
[2021-04-28] MEDS: Furosemide 20 MG/2 ML VIAL IVP SCH (09:21)
[2021-04-28] MEDS: Budesonide/Formoterol 160/4.5 1 PUFF INH IH SCH (09:39)
[2021-04-28] MEDS: Tiotropium 10 INH DOSE IH SCH (09:39)
[2021-04-28 14:54] VITALS: O2SAT 96
== END 2021-04-28 16:03 | disposition home or self-care (01) | DRG 140 ==
LOC: INPPIK 10:22 → EMEROOPIK 10:22 → INPPIK 14:26
PROVIDERS: ADMIT Family Medicine; ATTEND Family Medicine